=== PATIENT | female | born 1970 | race Caucasian/White ===

== ENCOUNTER 2019-10-09 09:53 | Outpatient (CLI) | payer BC, SELFPAY ==
--- NOTE | 2019-10-09 10:23 | USCV_ITS ---
Reagan Gregoria Age: 48 Gender: F : 1970 Exam Date: 10/09/2019 10:59 Ordering Phys: Martha Bowers NP Technologist: Teresita De Leon Exam Location: [facility] – [place]_ Indication: Right lower extremity edema and pain HISTORY: Lower extremity edema and pain. PROCEDURES: Venous duplex imaging was performed in only the right lower extremity. The following venous structures were evaluated: common femoral vein, profunda vein, proximal portion of the greater saphenous vein, superficial femoral vein, and the popliteal vein. In addition, the posterior tibial and peroneal trunk were evaluated. FINDINGS: Normal 2-D Doppler and augmentation and compressibility throughout the lower extremity venous structures. Additional imaging through the proximal calf veins also reveals no thrombus. Limited evaluation of the greater saphenous vein is patent with no thrombus. CONCLUSIONS Negative right lower extremity venouos Dopler ultrasound. Dr. Ruth Coronado MD (Electronically Signed) Final Date: 09 October 2019 12:01 S
== END 2019-10-09 09:54 | disposition home or self-care (01) ==
LOC: RAD 10:01
PROVIDERS: Family Provider Family Medicine; PCP Family Medicine; Visit Provider Nurse Practitioner Family
DX: R60.0 Localized edema (principal); M79.661 Pain in right lower leg
CPT/HCPCS: 93971

== ENCOUNTER 2019-10-15 17:01 | Outpatient (CLI) | payer BC, SELFPAY ==
--- NOTE | 2019-10-15 | XR_ITS ---
WS: [id number] Right foot, 2 views, 10/15/2019 Clinical Data: BILATERAL FOOT PAIN Comparison: None. Findings: No fractures or dislocations are seen. No bone destruction or erosion is noted. The joint spaces and soft tissues are normal. XR/XR foot RT 2V [id number] Impression: Negative right foot.
== END 2019-10-15 17:02 | disposition home or self-care (01) ==
LOC: RAD 17:03
PROVIDERS: Family Provider Family Medicine; PCP Family Medicine; Visit Provider Nurse Practitioner Family
DX: M79.671 Pain in right foot (principal)
CPT/HCPCS: 73620

== ENCOUNTER 2019-10-27 12:26 | Outpatient (CLI) | payer BC, SELFPAY ==
--- NOTE | 2019-10-27 12:32 | US_ITS ---
WS: [id number] Thyroid ultrasound, 10/27/2019 Clinical Data: NONTOXIC SINGLE THYROID NODULE Comparison: None. Findings: The right lobe of thyroid measures 5.6 cm x 2.4 cm x 1.8 cm. There is a central nodule measuring 1.59 x 2.41 x 2.8 cm with mixed echogenicity. There is a smaller nodule measuring 0.46 x 0.48 x 0.68 cm. The left lobe measures 4.5 cm x 1.5 cm x 1.1 cm. There are at least 3 small nodules the largest of wh ich measures 0.33 x 0.43 x 0.6 cm. The small nodules are also of mixed echogenicity. The isthmus measured 0.3 mm. The echotexture of the thyroid is uniform. US/US thyroid [id number] Impression: 1. Large right thyroid nodule unchanged. 2. Small right thyroid nodule and 3 small left thyroid nodules.
== END 2019-10-27 12:27 | disposition home or self-care (01) ==
LOC: RAD 12:29
PROVIDERS: Family Provider Family Medicine; PCP Family Medicine; Visit Provider Nurse Practitioner Family
DX: E04.2 Nontoxic multinodular goiter (principal)
CPT/HCPCS: 76536

== ENCOUNTER → 2019-11-24 10:23 | Outpatient (BNVA) | payer BC, SELFPAY | PROVIDERS: Family Provider Family Medicine; PCP Family Medicine; Visit Provider Otolaryngology | DX: E04.1 Nontoxic single thyroid nodule (principal); E04.9 Nontoxic goiter, unspecified | CPT/HCPCS: 99203; 99214 ==

== ENCOUNTER 2019-12-03 15:26 | Outpatient (CLI) | payer BC, SELFPAY ==
--- NOTE | 2019-12-03 15:31 | XR_ITS ---
WS: [id number] CERVICAL SPINE TECHNIQUE: 3 views of the cervical spine CLINICAL INFORMATION: NECK PAIN COMPARISON: None. FINDINGS: Normal cervical alignment. Normal C1-C2 articulation. Stable fusion C5-6 with interbody fusion graft. Fusion appears solid. XR/XR cervical spine 3V* [id number] IMPRESSION: Solid-appearing fusion C5-6
== END 2019-12-03 15:27 | disposition home or self-care (01) ==
LOC: RADWPI 15:29
PROVIDERS: Family Provider Family Medicine; PCP Family Medicine; Visit Provider Nurse Practitioner Family
DX: M54.2 Cervicalgia (principal); Z98.1 Arthrodesis status
CPT/HCPCS: 72040

== ENCOUNTER 2020-01-07 08:01 | Outpatient (CLI) | payer BC, SELFPAY ==
--- NOTE | 2020-01-07 08:00 | XR_ITS ---
WS: [id number] LATERAL CERVICAL SPINE: 3 view. Lateral radiographs are performed in upright neutral, flexion and extension to the patient's toleranc e. HISTORY: Neck pain COMPARISON: 12/03/2019 Anterior cervical fusion with plate and screw fixation at C5-6. Interbody spacer with normal disc spa ce height. Fusion across the disc space. Straightening of the normal cervical lordosis. With flexion and extension there is no significant ins tability. Very slight retrolisthesis of C4 during extension. XR/XR cervical spine fl/ex [id number] IMPRESSION: 1. No significant cervical instability. 2. Anterior cervical fusion with interbody spacer at C5-6 is intact.
== END 2020-01-07 08:02 | disposition home or self-care (01) ==
LOC: RADWPI 08:03
PROVIDERS: Family Provider Family Medicine; PCP Family Medicine; Visit Provider Licensed Practical Nurse
DX: M54.2 Cervicalgia (principal); M43.22 Fusion of spine, cervical region
CPT/HCPCS: 72040

== ENCOUNTER 2020-01-20 10:54 | Outpatient (CLI) | payer BC, SELFPAY ==
--- NOTE | 2020-01-20 11:08 | MR_ITS ---
WS: [id number] MRI CERVICAL SPINE HISTORY: Neck pain COMPARISON: 07/12/2018 Prior anterior cervical fusion at C5-6 with interbody spacer. Mild straightening of the normal cervical lordosis. Mild disc desiccation. No signal abnormality with in the cord. No atrophy or edema. Craniocervical junction, C1 and C2 relationship, odontoid process and soft tissues are normal. C2-C3: Normal. C3-C4: Mild osteophytic ridging and asymmetric disc bulging to the LEFT. No significant stenosis. C4-C5: Mild annular disc bulging and osteophytic ridging. Slight effacement of ventral CSF but no jessika nosis. C5-C6: Mild annular disc bulging. No stenosis. C6-C7: Mild annular disc bulging. No stenosis. C7-T1: Small foraminal osteophyte on the LEFT. Minimal LEFT foraminal narrowing. RIGHT thyroid nodule measures 22.0 x 1.6 cm. Recent thyroid ultrasound has been performed on 0. MR/MR cervical spin wo con* [id number] IMPRESSION: 1. Prior anterior cervical fusion at C5-C6 is stable. No complications. 2. Mild effacement of ventral CSF at C4-5 has slightly progressed since the pr ior study. No significant stenosis. 3. Mild asymmetric disc bulging to the LEFT at C3-4.
== END 2020-01-20 10:55 | disposition home or self-care (01) ==
LOC: RADWPI 10:57
PROVIDERS: Family Provider Family Medicine; PCP Family Medicine; Visit Provider Licensed Practical Nurse
DX: M43.22 Fusion of spine, cervical region (principal); M25.78 Osteophyte, vertebrae; M50.21 Other cervical disc displacement, high cervical region; M96.1 Postlaminectomy syndrome, not elsewhere classified; E04.9 Nontoxic goiter, unspecified
CPT/HCPCS: 72141; 95910

== ENCOUNTER → 2020-01-26 11:37 | Outpatient (BNVA) | payer BC, SELFPAY | PROVIDERS: Family Provider Family Medicine; PCP Nurse Practitioner Family; Referring Provider Licensed Practical Nurse; Visit Provider Specialist | DX: M96.1 Postlaminectomy syndrome, not elsewhere classified (principal); M79.7 Fibromyalgia; R51 Headache | CPT/HCPCS: 99203; J1885 ==

== ENCOUNTER 2020-02-08 15:58 | Outpatient (RCR) | payer BC, SELFPAY | END 2020-02-28 23:59 | disposition home or self-care (01) | LOC: SPT 15:58 | PROVIDERS: PCP Nurse Practitioner Family; Referring Provider Specialist; Visit Provider Specialist | DX: M54.2 Cervicalgia (principal); M54.6 Pain in thoracic spine; M54.5 Low back pain; M79.7 Fibromyalgia | CPT/HCPCS: 97110; 97112; 97140; 97161; 97164; 97530 ==

== ENCOUNTER 2020-02-29 06:00 | Outpatient (RCR) | payer BC, SELFPAY | END 2020-03-29 23:59 | disposition home or self-care (01) | LOC: SPT 06:00 | PROVIDERS: PCP Nurse Practitioner Family; Visit Provider Specialist | DX: M79.7 Fibromyalgia (principal) | CPT/HCPCS: 97110; 97112; 97140; 97530 ==

== ENCOUNTER 2020-03-30 06:00 | Outpatient (RCR) | payer BC, SELFPAY | END 2020-04-29 23:59 | disposition home or self-care (01) | LOC: SPT 06:00 | PROVIDERS: PCP Nurse Practitioner Family; Visit Provider Specialist | DX: M79.7 Fibromyalgia (principal) | CPT/HCPCS: 97110; 97530 ==

== ENCOUNTER 2020-04-30 06:00 | Outpatient (RCR) | payer BC, SELFPAY | END 2020-05-30 23:59 | disposition home or self-care (01) | LOC: SPT 06:00 | PROVIDERS: PCP Nurse Practitioner Family; Visit Provider Specialist | DX: M79.7 Fibromyalgia (principal) | CPT/HCPCS: 97110; 97112; 97140 ==

== ENCOUNTER 2020-05-31 06:00 | Outpatient (RCR) | payer BC, SELFPAY | END 2020-06-22 14:24 | disposition home or self-care (01) | LOC: SPT 06:00 | PROVIDERS: PCP Nurse Practitioner Family; Visit Provider Specialist | DX: M79.7 Fibromyalgia (principal); M54.2 Cervicalgia; M54.6 Pain in thoracic spine; M54.5 Low back pain | CPT/HCPCS: 97110; 97112; 97164 ==

== ENCOUNTER → 2020-06-13 09:57 | Outpatient (BNVA) | payer BC, SELFPAY | PROVIDERS: PCP Nurse Practitioner Family; Visit Provider Specialist | DX: R29.90 Unspecified symptoms and signs involving the nervous system (principal); M18.10 Unilateral primary osteoarthritis of first carpometacarpal joint, unspecified hand; M75.81 Other shoulder lesions, right shoulder | CPT/HCPCS: 20550; 99213; J1030; J3490 ==

== ENCOUNTER → 2020-07-06 11:22 | Outpatient (BNVA) | payer BC, SELFPAY | PROVIDERS: PCP Nurse Practitioner Family; Visit Provider Specialist | DX: M25.511 Pain in right shoulder (principal); M18.10 Unilateral primary osteoarthritis of first carpometacarpal joint, unspecified hand; M50.90 Cervical disc disorder, unspecified, unspecified cervical region; M79.7 Fibromyalgia; Z98.1 Arthrodesis status | CPT/HCPCS: 99214 ==

== ENCOUNTER 2020-07-25 12:49 | Outpatient (CLI) | payer BC, SELFPAY ==
--- NOTE | 2020-07-25 13:03 | MR_ITS ---
WS: [id number] MRI brachial plexus, noncontrast. HISTORY: Burning pain in RIGHT shoulder anterior to posterior. No injury. Multiplanar, multisequence imaging is performed. There are no soft tissue mass along the course of the cervical trunks. Symmetric appearance bilateral ly. No edema surrounding the nerve roots. Asymmetric appearance of the internal jugular veins with th e RIGHT being larger than the LEFT. There is also a known RIGHT thyroid nodule which has been previou sly described by ultrasound. No adenopathy. No compression upon the cervical cord. MR/MR brachialplexus wo con [id number] IMPRESSION: No mass or signal abnormalities along the brachial plexus. Patient has a known RIGHT thyroid mass which has been previously described and evaluated.
--- NOTE | 2020-07-25 13:45 | MR_ITS ---
WS: [id number] MRI RIGHT SHOULDER HISTORY: M25.511 Pain in right shoulder COMPARISON: None available. TECHNIQUE: Multiplanar sequences of the shoulder joint are submitted. Very minimal hypertrophic degenerative changes at the AC joint. No subacromial fluid collection. Smal l amount of fluid in the subdeltoid bursa. No os acromion. Biceps tendon remains in normal position. No rotator cuff tear. Muscles of the rotator cuff are intact with no asymmetry or edema. Mild suprasp inatus tendinopathy. There is a small amount of fluid in the subscapular recess. There is also very s mall amount of fluid in the subdeltoid bursa. No labral abnormality. MR/MR shoulder RT wo con* [id number] IMPRESSION: 1. No rotator cuff tear. 2. Mild tendinopathy distal supraspinatus tendon. 3. Small amount of fluid in the subdeltoid and subscapularis recesses.
== END 2020-07-25 12:50 | disposition home or self-care (01) ==
LOC: RADSHAW 12:54
PROVIDERS: PCP Nurse Practitioner Family; Visit Provider Specialist
DX: M25.511 Pain in right shoulder (principal); E07.9 Disorder of thyroid, unspecified
CPT/HCPCS: 71550; 73221

== ENCOUNTER → 2020-10-22 16:38 | Outpatient (BNVA) | payer BC, SELFPAY | PROVIDERS: PCP Nurse Practitioner Family; Visit Provider Nurse Practitioner Family | DX: S90.32XA Contusion of left foot, initial encounter (principal); X58.XXXA Exposure to other specified factors, initial encounter | CPT/HCPCS: 73630 ==

== ENCOUNTER 2021-06-19 16:46 | Outpatient (CLI) | payer BC, SELFPAY ==
--- NOTE | 2021-06-19 17:14 | ECG_ITS ---
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 Measurements Intervals [place] Rate: 91 P: 57 IN: 138 QRS: 56 QRSD: 90 T: 3 QT: 311 QTc: 384 Interpretive Statements SINUS RHYTHM NONSPECIFIC T-WAVE ABNORMALITY INTERPRETATION BASED ON A DEFAULT AGE OF 40 YEARS Compared to ECG 02/06/2019 14:12:56 No significant changes Electronically Signed On 06-21-2021 23:36:43 CDT by Jyoti Lr M.D. [id number]
== END 2021-06-19 16:47 | disposition home or self-care (01) ==
LOC: RT 16:51
PROVIDERS: PCP Nurse Practitioner Family; Visit Provider Nurse Practitioner Family
DX: Z86.79 Personal history of other diseases of the circulatory system (principal)
CPT/HCPCS: 93005

== ENCOUNTER 2021-10-05 08:30 | Outpatient (CLI) | payer BC, SELFPAY ==
--- NOTE | 2021-10-05 08:45 | USCV_ITS ---
Gregoria Kirk Age: 50 Gender: F : 1970 Exam Date: 10/05/2021 08:43 Ordering Phys: Ana Cristina Mondragon MD ([email or web address]) Technologist: CALEB Exam Location: [facility] – [place] Indication: TACHYCARDIA BP: 112 / 82 HR: 104 Rhythm: Sinus Technical Quality: Technically difficult study MEASUREMENTS (Male / Female) Normal Values 2D ECHO LV Diastolic Diameter PLAX 4.2 cm 4.2 - 5.9 / 3.9 - 5.3 cm LV Systolic Diameter PLAX 2.9 cm IVS Diastolic Thickness 1.0 cm 0.6 - 1.0 / 0.6 - 0.9 cm IVS Systolic Thickness 1.3 cm LVPW Diastolic Thickness 1.1 cm 0.6 - 1.0 / 0.6 - 0.9 cm LVPW Systolic Thickness 1.3 cm LVOT Diameter 2.0 cm LV Ejection Fraction 2D Teich 59.4 % LV Ejection Fraction MOD 2C 56.9 % LV Ejection Fraction 2C AL 55.5 % LA Diameter 3.3 cm LA Width 2.7 cm LA Height 4.5 cm RA Width 3.5 cm RA Height 3.6 cm Aorta at Sinotubular Diameter 2.0 cm M-MODE Aortic Annulus Diameter 2.9 cm LA Ao Ratio MM 1.3 DOPPLER AV Peak Velocity 132.0 cm/s LVOT Peak Velocity 98.0 cm/s AV Area Cont Eq vti 2.2 cm squared AV Area Cont Eq pk 2.4 cm squared TR Peak Velocity 116.4 cm/s TR Peak Gradient 5.4 mmHg TR Mean Velocity 80.7 cm/s TR Mean Gradient 2.8 mmHg TR Velocity Time Integral 19.8 cm RV Acceleration Time 0.1 s RV Ejection Time 0.2 s RV AcT/ET 0.3 FINDINGS Left Ventricle Normal left ventricular size, systolic function and wall thickness, with no regional wall motion abnormalities. Left ventricular ejection fraction is estimated at 63 %. Normal diastolic function. Right Ventricle Normal right ventricular size and systolic function. Normal right ventricular systolic pressure. Right Atrium Normal right atrial size. Right atrial pressure estimated at 3 mm Hg. Left Atrium Normal left atrial size. Mitral Valve Structurally normal mitral valve. No mitral valve stenosis. No mitral valve regurgitation. Aortic Valve Structurally normal trileaflet aortic valve. No aortic valve stenosis. No aortic valve regurgitation. Tricuspid Valve Structurally normal tricuspid valve. Trace tricuspid valve regurgitation. Pulmonic Valve Structurally normal pulmonic valve. No pulmonary valve stenosis. Trace pulmonary valve regurgitation. Pericardium No pericardial effusion. Aorta Normal-sized aortic root and proximal ascending aorta. Normal- sized inferior vena cava with greater than 50% respiratory variation. CONCLUSIONS 1. Normal left ventricular size, systolic function and wall thickness, with no regional wall motion abnormalities. Left ventricular ejection fraction is estimated at 63 %. Normal diastolic function. 2. Normal right ventricular size and systolic function. 3. No significant valvular normality. 4. Normal pulmonary artery pressure. 5. No prior similar studies to compare. Ana Cristina Mondragon MD (Electronically Signed) Final Date: 10 October 2021 13:36 S
== END 2021-10-05 08:31 | disposition home or self-care (01) ==
LOC: RAD 08:32
PROVIDERS: PCP Nurse Practitioner Family; Visit Provider Internal Medicine Cardiovascular Disease
DX: R00.0 Tachycardia, unspecified (principal)
CPT/HCPCS: 93306; C8929

== ENCOUNTER → 2024-05-07 14:48 | Outpatient (BNVA) | payer OTHER, SELFPAY | PROVIDERS: PCP Nurse Practitioner Family; Visit Provider Physician Assistant | DX: M25.841 Other specified joint disorders, right hand | CPT/HCPCS: 73130 ==

== ENCOUNTER 2024-06-17 12:27 | Inpatient (IN) | payer OTHER, BC, MEDICAID, SELFPAY ==
[2024-06-17] VITALS (22 sets, daily range): BP systolic 97–161; BP diastolic 58–101; PULSE 66–104; RESP 16–20; TEMP 36.1–36.8; O2SAT 92–97; BMI 43.9
[2024-06-17] MEDS: acetaminophen 1,000 MG/100 ML PIGGYBACK 400 MG IV (09:01)
[2024-06-17] MEDS: sodium chloride 0.9% 1,000 ML 30 ML IV (09:01)
[2024-06-17] MEDS: scopolamine 1.5 Patch 1 PATCH TRANSDERMA (09:02)
[2024-06-17] MEDS: ketorolac 30 mg/mL INJ IVP (09:02)
--- NOTE | 2024-06-17 09:14 | ANES.PREANE2 ---
Pre-Anesthetic Assessment Height/Weight: Height 5 ft 9 in Weight 298 lb Temp Pulse Resp BP Pulse Ox O2 Del Method 97.8 F 104 H 18 144/86 97 Room Air 06/17/24 08:49 06/17/24 08:49 06/17/24 08:49 06/17/24 08:49 06/17/24 08:49 06/17/24 08:52 Preop Diagnosis: Finger cyst Operation Date: 06/17/24 10:10 Proposed Procedures p middle finger distal interphalangeal joint cyst excision(Right) - Omer Vallesatt, DO Was Beta Marie taken within 24 hours: N/A Was Clonidine taken within 24 hours: N/A Last intake: Intake Last Liquid Date 06/16/24 Last Liquid Time 22:00 Last Solid Date 06/16/24 Last Solid Time 22:00 Social No alcohol and No tobacco Exam alert, oriented x 3, clear to auscultation bilaterally and regular rate & rhythm Airway Submandibular: within normal limits Cervical ROM: within normal limits Mallampati: Class II Dentition: full Anesthetic Plan ASA status: 3 Anesthesia: MAC Other: No prior issues with anesthesia NPO since midnight History of GERD, controlled on Protonix BMI 44 Patient had an episode of SVT a few years ago, workup negative Echo 2021 showing EF 63% Prior EKG showing sinus rhythm METs greater than 4 Plan for MAC anesthetic with local via surgeon Medications/Allergies Home Medications Medication Instructions Recorded Confirmed Last Taken Type omeprazole 40 mg capsule,delayed 40 mg PO DAILY 11/24/19 06/17/24 06/16/24 History release venlafaxine 37.5 mg 75 mg PO QPM 07/06/21 06/16/24 06/16/24 History capsule,extended release 24 hr buspirone 10 mg tablet 10 mg PO DAILY 05/07/24 06/16/24 06/16/24 History hydrochlorothiazide 12.5 mg tablet 12.5 mg PO DAILY 05/07/24 06/16/24 06/16/24 History rosuvastatin 10 mg tablet 10 mg PO QPM 05/07/24 06/16/24 06/16/24 History amitriptyline 25 mg tablet 25 mg PO BEDTIME 06/16/24 06/16/24 06/15/24 History metoprolol tartrate 25 mg tablet 25 mg PO DAILY 06/16/24 06/16/2406/16/24 History metoprolol tartrate 50 mg tablet 50 mg PO DAILY 06/17/24 06/17/24 06/17/24 07:30 History Allergies Allergy/AdvReac Type Severity Reaction Status Date / Time codeine Allergy hives Verified 06/17/24 08:39 estradiol Allergy ALGY-Wheezi Verified 06/17/24 08:39 ng nalbuphine [From Nubain] Allergy hives Verified 06/17/24 08:39 Current Medications Generic Name Dose Route Start Last Admin Trade Name Freq PRN Reason Stop Dose Admin Sodium Chloride 1,000 mls @ 30 mls/hr 06/17/24 08:45 06/17/24 09:01 Sodium Chloride 0.9% IV 06/18/24 08:44 30 mls/hr .Q24H SADIA Administration PFSH Anesthesia Medical History (Updated 06/16/24 @ 12:53 by Isabel Wise) Tachycardia Metabolic syndrome Obesity Vitamin D deficiency H/O supraventricular tachycardia Menopausal symptoms Hiatal hernia GERD (gastroesophageal reflux disease) Cervical disc disease Cervical post-laminectomy syndrome SVT (supraventricular tachycardia) Fibromyalgia Goiter Surgical History S/P shoulder surgery 2020 removal of bone spur [facility], [place] History of laparoscopic cholecystectomy H/O: hysterectomy Hx of fusion of cervical spine (2003) C5-C6, Dr. 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
--- NOTE | 2024-06-17 09:28 | P.HP_ITS ---
Same Day Surgery H&P Indication for Procedure/HPI DATE OF PROCEDURE: June 17, 2024 CHIEF COMPLAINT/INDICATIONFOR SURGICAL PROCEDURE: Right middle finger cyst PREOP DIAGNOSIS: Right middle finger cyst PLANNED PROCEDURE: Operation Date: 06/17/24 10:10 Proposed Procedures p middle finger distal interphalangeal joint cyst excision(Right) - Omer Feliz DO Medications/Allergies* Home Medications Medication Instructions Recorded Confirmed Type omeprazole 40 mg capsule,delayed 40 mg PO DAILY 11/24/19 06/17/24 History release venlafaxine 37.5 mg 75 mg PO QPM 07/06/21 06/16/24 History capsule,extended release 24 hr buspirone 10 mg tablet 10 mg PO DAILY 05/07/24 06/16/24 History hydrochlorothiazide 12.5 mg tablet 12.5 mg PO DAILY 05/07/24 06/16/24 History rosuvastatin 10 mg tablet 10 mg PO QPM 05/07/24 06/16/24 History amitriptyline 25 mg tablet 25 mg PO BEDTIME 06/16/24 06/16/24 History metoprolol tartrate 25 mg tablet 25 mg PO DAILY 06/16/24 06/16/24 History metoprolol tartrate 50 mg tablet 50 mg PO DAILY 06/17/24 06/17/24 History Allergies/Adverse Reactions Allergy/AdvReac Type Severity Reaction Status Date / Time codeine Allergy hives Verified 06/17/24 08:39 estradiol Allergy ALGY-Wheezi Verified 06/17/24 08:39 ng nalbuphine [From Nubain] Allergy hives Verified 06/17/24 08:39 Current Medications: Generic Name Dose Route Start Last Admin Trade Name Freq PRN Reason Stop Dose Admin Sodium Chloride 1,000 mls @ 30 mls/hr 06/17/24 08:45 06/17/24 09:01 Sodium Chloride 0.9% IV 06/18/24 08:44 30 mls/hr .Q24H SADIA Administration Pertinent History/Comorbid Conditions* Medical History (Updated 05/07/24 @ 15:23 by CONCEPCION Alvares) Tachycardia Metabolic syndrome Obesity Vitamin D deficiency H/O supraventricular tachycardia Menopausal symptoms Hiatal hernia GERD (gastroesophageal reflux disease) Cervical disc disease Cervical post-laminectomy syndrome SVT (supraventricular tachycardia) Fibromyalgia Goiter Surgical History (Updated 09/17/21 @ 09:49 by BUBBA Saucedo) S/P shoulder surgery 2020 removal of bone spur [facility], [place] History of laparoscopic cholecystectomy H/O: hysterectomy Hx of fusion of cervical spine (2003) C5-C6, Dr. 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 No signs of abscess. Pain with range of motion in DIP joint. Negative Tinel's and negative Phalen's. No mechanical locking or catching of fingers. 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 Radial pulse 2+. Recommendations Surgery/Procedure today Other Plans: Plan proceed to the OR today for right middle finger cyst excision at the DIP joint of the finger. Patient understands the risk benefits complication alternatives surgery and through shared decision-making elects proceed with surgical intervention all questions answered at this time. Coding Level of Care Code Acute Code for Chg Fwanastasiya
[2024-06-17] MEDS: ROPivacaine 0.5% SDV 30 mL 150 MG INJECTION (09:38)
[2024-06-17] MEDS: ceFAZolin 3,000 MG in sodium chloride 0.9% (plus) 100 ML 200 MG IV (09:38)
--- NOTE | 2024-06-17 10:22 | W.PM.BPON ---
Date of Procedure: 06/17/2024 Surgeon: Omer Feliz DO Mathematics Instructor(s): Galdino Feliz PA-C Procedure(s) performed: Right middle finger mucous cyst excision(0.25cm x0.25cm x0.25cm) Findings of the procedure(s): Right middle finger mucous cyst underwent procedure as planned without issues or complications Estimated blood loss: 1 mL Specimen(s) removed: Right middle finger mucous cyst excised and sent for pathology Post-operative diagnosis: Right middle finger mucous cyst
--- NOTE | 2024-06-17 10:27 | P.OP_ITS ---
Operative Report Date of procedure: June 17, 2024 Surgeon: Omer Feliz DO Single Needle Tufting Machine Operator: Galdino Feliz PA-C: PA was necessary for assistance in this case with hand positioning to execute the procedure, retraction and protection of neurovascular structures as well as to assist with wound closure and dressing application. Procedure: Preoperative diagnosis: Right middle finger mucous cyst Post-op diagnosis: Right?middle?finger?mucous?cyst Procedure done: Right middle finger?mucous?cyst excision (0.25cm x0.25cm x0.25cm) Surgeon: Omer Feliz DO Estimated blood loss: 1 mL Tourniquet time 12 minutes IV fluids: 100 mL Complications: None Findings: See operative report narrative Condition: stable Disposition: same day Brief History: Patient presents to the outpatient setting with findings consistent with a right middle finger?DIP mucous?cyst.? She has been worked up in the outpatient setting and is failed conservative treatment approach.? 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 patient's failed conservative treatment options at this point in time patient wishes to proceed with surgical intervention.? We talked about the risk benefits complications and alternatives with surgical nonsurgical treatment options.? Understanding risk of surgery she agrees to proceed with a right middle finger?mucous?cyst excision.? All questions answered. Procedure: Patient was seen evaluated in the preoperative holding area.? Consent was reviewed and signed with patient.? Correct extremity was then marked.? Patient was then seen and evaluated by the anesthesia department once cleared for surgery patient was then taken back to the operative suite patient was placed in supine position and all bony prominences well-padded the patient was properly secured to the bed.? Armboard was applied to the right upper extremity. This point time the right upper extremity was then prepped and draped in standard orthopedic fashion.? A final timeout was performed.? Patient received appropriate preoperative antibiotics. Prior to proceeding with incision sites I then performed digital block of the right middle finger under sterile aseptic technique Finger turnicot was used over the right middle finger to exsanguinate the digit. ? Right middle finger was then identified as well as the?mucous?cyst over the DIP joint on the radial aspect of the finger.? I then from the eponychial fold made an incision up to the DIP joint and slightly across longitudinally to encompass the entirety of the cyst. I then subsequently mobilized full-thickness skin flaps with care to not injure the extensor tendon. At this point time it was evident patient had a prominent cyst over the dorsal and radial aspect communicating to the joint capsule. I utilized [place] blade as well as dissection scissors to dissect out the mucous cyst and then this had a wider base I subsequently utilized [place] blade and bipolar to coagulate and excise this at the base communicating to the DIP joint. Cyst measured(0.25cm x0.25cm x0.25cm). Overall there was no significant dorsal osteophyte prominence noted and mild arthritic changes noted of the DIP joint. At this point time I utilize bipolar electrocautery to cauterize the cyst wound bed to hopefully prevent from cyst recurrence I then subsequent let down the finger turnicot. Hemostasis was satisfactory thoroughly irrigation was performed. I then closed the dorsal capsule with interrupted 4-0 Monocryl suture to reapproximate and close down the space for cyst recurrence prevention and then subsequently closed the skin with interrupted nylon sutures. Right middle finger mucous cyst within subsequently sent for pathology. Incision sites were then dressed with Xeroform 4 x 4's Kerlix Lien wrap and an Nicko wrap.? Patient was then awakened from anesthesia and taken to PACU in stable condition. Disposition: Patient taken to PACU in stable condition, in the recovery process she complained of increased chest pain and subsequently after evaluation by the anesthesiologist recommended hospitalization by the hospitalist team for workup. She was stable from an orthopedic standpoint dressing was on in place clean dry and intact orthopedics will continue to follow while she is admitted. Patient understands and agrees with current plan.? All questions answered.
[2024-06-17] MEDS: lidocaine 1% 10 ML INJ XX (10:28)
--- NOTE | 2024-06-17 10:34 | P.PCN_ITS ---
PACU note Narrative: Patient is a 53-year-old female who just underwent a finger cyst excision. Patient transferred to PACU in stable condition. Pain is well controlled. Dressing on hand is dry and in place. Patient's fingers are warm and well- perfused. Patient can wiggle fingers. normal cap refill under 2 seconds. Patient has normal elbow range of motion. Sensation to hand intact. Exam: awake Disposition: discharged
[2024-06-17] MEDS: fentaNYL 50 mcg/mL INJ 2mL IVP (10:40)
--- NOTE | 2024-06-17 11:00 | ECG_ITS ---
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 Measurements Intervals [place] Rate: 69 P: 49 [place]: 151 QRS: 35 QRSD: 107 T: -14 QT: 400 QTc: 431 Interpretive Statements SINUS RHYTHM MODERATE T-WAVE ABNORMALITY, CONSIDER ANTERIOR ISCHEMIA [-0.1+ mV T-WAVE IN V3/V4] Compared to ECG 06/19/2021 17:05:35 Possible ischemia now present T-wave abnormality still present Electronically Signed On 06-18-2024 0:18:36 CDT by Jyoti Lr M.D. [email or web address]
--- NOTE | 2024-06-17 11:09 | SUR.PHASEII ---
patient c/o chest pain, heaviness on chest, radiating down her left arm and in her jaw. denies sob vs wnl. ekg completed. results given to anesthesia who is assessing patient and now to consult with the operating physician
--- NOTE | 2024-06-17 11:13 | PC.NURSE ---
1057 - moved pt from Phase 1 to phase 2 to room 10 - Anita RN at side - pt complains of chest pain upon entering room - states it is chest pressure -hooked to monitor per this nurse - 12 lead ekg ordered stat - Dr Campos notified
--- NOTE | 2024-06-17 11:38 | P.HP_ITS ---
Providers/Chief Complaint Primary Care Provider: BUBBA Foley Chief Complaint: M67.441 History of Present Illness Gregoria Kirk is a 53 year old female who was admitted today from outside elective surgery after finger cyst removal for chief complaint of chest pain. Patient is describing her pain as pressure-like sensation radiating towards her neck left arm and shoulder. It lasted for about few minutes and then resolved w ith use of fentanyl and opioids. EKG troponin unremarkable D-dimer unremarkable. By the time I evaluate the patient she is watching television no active chest pain hemodynamically stable endorsing history of aortic stenosis and family, father suffer from heart failure. Patient does not carry history of CHF or coronary disease, patient is not diabetic. Review of Systems Const: Denies: fever(s) Eyes: Denies: change in vision ENMT: Denies: throat pain Card: Reports: chest pain Resp: Denies: dyspnea GI: Denies: abdominal pain Medications/Allergies Home Medications Medication Instructions Recorded Confirmed Last Taken Type omeprazole 40 mg capsule,delayed 40 mg PO DAILY 11/24/19 06/17/24 06/16/24 History release venlafaxine 37.5 mg 75 mg PO QPM 07/06/21 06/16/24 06/16/24 History capsule,extended release 24 hr buspirone 10 mg tablet 10 mg PO DAILY 05/07/24 06/16/24 06/16/24 History hydrochlorothiazide 12.5 mg tablet 12.5 mg PO DAILY 05/07/24 06/16/24 06/16/24 History rosuvastatin 10 mg tablet 10 mg PO QPM 05/07/24 06/16/24 06/16/24 History amitriptyline 25 mg tablet 25 mg PO BEDTIME 06/16/24 06/16/24 06/15/24 History metoprolol tartrate 25 mg tablet 25 mg PO DAILY 06/16/24 06/16/24 06/16/24 History metoprolol tartrate 50 mg tablet 50 mg PO DAILY 06/17/24 06/17/24 06/17/24 07:30 History ondansetron 4 mg disintegrating 4 mg PO Q8H PRN nausea and 06/17/24 Unknown Rx tablet vomiting 3 days #9 tabs tramadol 50 mg tablet 50 mg PO Q6H PRN pain #20 tabs 06/17/24 Unknown Rx Allergies Allergy/AdvReac Type Severity Reaction Status Date / Time codeine Allergy hives Verified 06/17/24 08:39 estradiol Allergy ALGY-Wheezi Verified 06/17/24 08:39 ng nalbuphine [From Nubain] Allergy hives Verified 06/17/24 08:39 PFSH Acute PFSH: Medical History Tachycardia Metabolic syndrome Obesity Vitamin D deficiency H/O supraventricular tachycardia Menopausal symptoms Hiatal hernia GERD (gastroesophageal reflux disease) Cervical disc disease Cervical post-laminectomy syndrome SVT (supraventricular tachycardia) Fibromyalgia Goiter Surgical History S/P shoulder surgery 2020 removal of bone spur [facility], [place] History of laparoscopic cholecystectomy H/O: hysterectomy Hx of fusion of cervical spine (2003) C5-C6, Dr. 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 Vitals/I&O/Wt Last Vital Signs Temp 97.2 F L 06/17/24 10:58 Pulse 68 06/17/24 11:18 Resp 18 06/17/24 11:18 BP 160/86 06/17/24 11:27 Pulse Ox 96 06/17/24 11:18 O2 Del Method Room Air 06/17/24 10:58 06/16/24 06/17/24 06/17/24 22:59 06:59 14:59 Intake Total 150 / 150 Output Total Balance 149 / 149 Weight last 48 hrs Weight 135.171 kg Physical Exam Narrative: Patient is resting well Watching television Awake and alert No active chest pain hemodynamically stable currently on room air No active discomfort abdomen nontender distended Nonfocal neuroexam S1, S2 Currently on room air A&P Assessment and plan (1) Metabolic syndrome: (2) GERD (gastroesophageal reflux disease): Qualifiers: Esophagitis presence: esophagitis presence not specified Qualified Code(s): K21.9 - Gastro-esophageal reflux disease without esophagitis (3) Fibromyositis: (4) Cyst of finger: (5) Chest pain, atypical: Plan Atypical chest pain Hemodynamically stable Check D-dimer serial troponin EKG stress test in the morning Postoperative chest pain Patient is asking about her anxiolytics which have resumed N.p.o. after midnight She can a cardiac diet for now Full code DVT prophylaxis added Continue metoprolol Attestations Medical Necessity Statement*: Possible discharge within 24 hours Diagnoses Metabolic syndrome E88.81 Gastroesophageal reflux disease, unspecified whether esophagitis present K21.9 Esophagitis presence: esophagitis presence not specified Fibromyositis M79.7 Cyst of finger Chest pain, atypical R07.89
--- NOTE | 2024-06-17 11:40 | USCV_ITS ---
Gregoria Kirk Age: 53 Gender: F : 1970 Exam Date: 06/17/2024 13:40 Ordering Phys: Gregg Cano MD Technologist: Exam Location: [facility] [place] Indication: cp BP: 103 / 61 HR: 68 Rhythm: Sinus Technical Quality: Adequate MEASUREMENTS (Male / Female) Normal Values 2D ECHO LV Diastolic Diameter PLAX 4.5 cm 4.2 - 5.9 / 3.9 - 5.3 cm IVS Diastolic Thickness 1.0 cm 0.6 - 1.0 / 0.6 - 0.9 cm IVS Systolic Thickness 1.3 cm LVPW Diastolic Thickness 1.2 cm 0.6 - 1.0 / 0.6 - 0.9 cm LVPW Systolic Thickness 2.0 cm LVOT Diameter 2.0 cm LV Ejection Fraction 2D Teich 65.7 % LV Ejection Fraction MOD 4C 74.0 % LV Ejection Fraction MOD 2C 68.4 % LV Ejection Fraction 2C AL 70.5 % LA Diameter 2.9 cm RA Systolic Volume 4C AL 43.5 ml RA Systolic Volume 4C MOD 42.0 ml Aorta at Sinotubular Diameter 2.5 cm M-MODE LA Ao Ratio MM 1.2 AV Cusp Separation MM 2.2 cm DOPPLER AV Peak Velocity 131.0 cm/s LVOT Peak Velocity 80.0 cm/s AV Area Cont Eq vti 1.8 cm squared AV Area Cont Eq pk 2.0 cm squared MV Area PHT 3.1 cm squared Mitral E to A Ratio 1.0 TV Peak Velocity 149.0 cm/s TR Peak Velocity 176.0 cm/s TR Peak Gradient 12.4 mmHg TV Peak E Velocity 77.0 cm/s Right Atrial Pressure 3.0 mmHg Pulmonary Artery Systolic Pressu 15.4 mmHg PV Peak Velocity 82.0 cm/s FINDINGS Left Ventricle Left ventricle is normal in size. LV systolic function is normal with EF of 60 to 65%. No regional wall motion abnormalities are seen. Right Ventricle Normal in size and function Right Atrium Normal in size Left Atrium Normal in size Mitral Valve Structurally normal mitral valve. Trace mitral regurgitation. Aortic Valve Structurally normal aortic valve. No significant stenosis or regurgitation. Tricuspid Valve Mild tricuspid regurgitation. Insufficient TR jet to calculate RVSP. Pulmonic Valve Mild pulmonic regurgitation. Pericardium Normal Aorta Normal in size IVC Not well visualized CONCLUSIONS LV systolic function is normal with EF of 60 to 65%. Trace mitral regurgitation. Mild tricuspid regurgitation Mild pulmonic regurgitation Compared to prior echocardiogram from 2021, no significant changes are seen Kael Chaudhry MD (Electronically Signed) Final Date: 18 June 2024 08:27 S
--- NOTE | 2024-06-17 11:47 | SUR.PHASEII ---
patient reports pain in her chest has not subsided, has stayed consistent at a 5 with no worsening and no other symptoms observed or reported. troponins and d-dimer ordered. hospitalist consulted. patient is to be admitted. currently waiting on a room for admission. patient is resting quietly , no distress noted. vs stable. mom at bedside
[2024-06-17 12:05] LABS: Troponin T (5th) Once < 6 ng/L (0-10)
--- NOTE | 2024-06-17 12:16 | PM.MISC ---
Miscellaneous Note Purpose of Documentation: Orthopedic note update: I was contacted by anesthesia while in PACU patient was complaining of chest pain plan at this point in time anesthesia recommends patient be admitted by hospitalist just for appropriate workup. No intraoperative issues patient had received a digital local block underwent mucous cyst excision without issues or complications intraoperatively. At this point time we will rely on our internal medicine colleagues for appropriate workup while she is admitted during the hospital I will follow along from an orthopedic standpoint. Patient updated on current plan understands and agrees. All questions answered at this time. Omer Feliz, DO
[2024-06-17 12:21] LABS: D Dimer 0.65 ug/mLFEU (0-0.59)
[2024-06-17] MEDS: enoxaparin 40 mg/0.4 mL Syringe SUBCUT (13:21)
[2024-06-17] MEDS: pantoprazole 40 mg SDV IVP ×2 (13:21→18:45)
--- NOTE | 2024-06-17 13:41 | ECG_ITS ---
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 Measurements Intervals [place] Rate: 73 P: 58 [place]: 161 QRS: 65 QRSD: 104 T: 10 QT: 370 QTc: 409 Interpretive Statements SINUS RHYTHM NONSPECIFIC T-WAVE ABNORMALITY Compared to ECG 06/17/2024 10:59:14 Possible ischemia no longer present T-wave abnormality still present Electronically Signed On 06-18-2024 22:39:21 CDT by Jyoti Lr M.D. [email or web address]
--- NOTE | 2024-06-17 14:00 | ANE.PACU2 ---
Inpatient post-anesthesia follow up: Airway intact: Yes Vital signs: Temperature 97.2 F Pulse Rate 69 Respiratory Rate 18 Blood Pressure 141/84 Pulse Oximetry 97 Oxygen Delivery Me thod Room Air Oxygen Flow Rate Fraction of Inspir ed Oxygen Hydration adequate: Yes Nausea and vomiting: No Pain level: 2 Mental status: Baseline Additional Comments: Patient developed chest pain, shortness of breath and phase 2. Twelve-lead EKG ordered and appeared to be similar to previous. Reached out to Dr. Lr from cardiology and he suggested running troponins with observation overnight. Spoke to hospitalist who agreed to admit patient
--- NOTE | 2024-06-17 14:42 | ECG_ITS ---
[facility] Test Date: 2024-06-18 Pat Name: Gregoria Kirk Department: Room: 254 Gender: Female Improvement Lead: Manjeet Lyman : 1970 Requested By: Gregg Cano Order Number: [id number] Graham MD: Jyoti Lr M.D. Interpretive Statements NAME OF STUDY: LEXISCAN SESTAMIBI STRESS TEST INDICATION: [unstable angina, ] PROCEDURE: At the baseline, the EKG revealed normal sinus rhythm with diffuse nonspecific T wave changes in the inferolateral leads. The baseline heart was 78 bpm with a blood pressue of 172/88 mm of Hg Lexiscan was infused over a period of 20 seconds. A total of 0.4 milligrams of Lexiscan was infused. The stress phase was continued for a total of 5 minutes. Heart rate at the end of the stress phase was 92 bpm with a blood pressure 107/66 mm of Hg. The EKG at the peak infusion revealed no significant changes. Sestamibi was injected 20 seconds after the Lexiscan infusion. Heart rate at the end of the recovery phase was 84 bpm with a blood pressure of 103/65 mm of Hg. CONCLUSION: 1. No significant EKG changes with the LexiScan infusion 2. No LexiScan induced chest pain or cardiac arrhythmia 3. Normal blood pressure and heart rate response 4. Sestamibi/sestamibi perfusion scan pending; see separate report. Electronically Signed On 06-21-2024 19:50:31 CDT by Jyoti Lr M.D. [id number]
[2024-06-17 15:58] LABS: Troponin(5th) Baseline < 6 ng/L (0-10)
[2024-06-17 18:34] LABS: Troponin 5 2HR Delta 0.00001 ABS# (0-10)
[2024-06-17] MEDS: morphine IR 15 mg Tablet PO (20:50)
[2024-06-17] MEDS: amitriptyline 25 mg Tablet PO (20:51)
[2024-06-17] MEDS: venlafaxine ER (24HR) 75 mg Capsule PO (20:51)
[2024-06-17] MEDS: atorvastatin 40 mg Tablet PO (20:51)
[2024-06-17 22:31] LABS: Troponin 5 6HR Delta 0.00001 ng/L (0-12)
[2024-06-18] VITALS (7 sets, daily range): BP systolic 103–164; BP diastolic 63–79; PULSE 67–87; RESP 15–18; TEMP 36.3–36.8; O2SAT 93–99
[2024-06-18 03:28] LABS: Basophils % 0.4 %; Eosinophils # 0.1 10^3/uL (0.0-0.8); Eosinophils % 1.6 %; Hematocrit 41.9 % (36-47); Lymphocytes # 3.1 10^3/uL (0.8-4.8); Lymphocytes % 39.5 %; Mean Corpuscular HGB Conc 31.7 g/dL (30-55); Mean Corpuscular Volume 97.7 fl (85-98); Mean Platelet Volume 11.6 fL (7.4-10.4); Monocytes # 0.5 10^3/uL (0.2-0.9); Monocytes % 6.8 %; Neutrophils # 4.06 10^3/uL (1.8-7.7); Neutrophils % 51.3 %; Nucleated Red Blood Cells % 0 %; Platelet Count 211 10^3/cmm (157-399); Red Blood Count 4.29 10^6/uL (3.85-5.65); Red Cell Distribution Width 13.6 % (12.1-15.1); White Blood Count 7.92 10^3/uL (3.29-11.43)
[2024-06-18 03:58] LABS: Blood Urea Nitrogen 17 mg/dL (6-20); Calcium 8.2 mg/dL (8.5-10.5); Carbon Dioxide 26 mmol/L (22-29); Chloride 106 mmol/L (98-107); Creatinine Clr Calc Pharmacy 140.7756; Glomerular Filtration Rate 88.2 mL/min (90-130); Glucose 107 mg/dL (65-115); Magnesium 2.2 mg/dL (1.7-2.3); Osmolality Calculated 294 mOsm/kg (285-295); Sodium 141 mmol/L (136-145)
[2024-06-18 04:01] LABS: Anion Gap 12.7 (5-19); Potassium 3.7 mmol/L (3.5-5.1)
--- NOTE | 2024-06-18 07:01 | NMCV_ITS ---
NM anoop perf SPECT r/s* [id number] Gregoria Kirk Age: 53 Gender: F : 1970 Exam Date: 06/18/2024 08:21 Ordering Phys: Gregg Cano MD Technologist: IGLESIA Tran Exam Location: [facility] Indications: cp STRESS TEST Please see separate stress test report in [facility] for full findings IMAGE PROTOCOL Rest/Stress 1 Lexiscan Day Radiopharmaceutical Dose (mCi) Administration Site Administered by Rest: Tc-99m 10.9 IV IGLESIA Garcia Sestamibi Stress:Tc-99m 33 IV IGLESIA Tran Sestamiade Rest: 18-Jun-2024 60 Discovery 630 Stress: 18-Jun-2024 30 Discovery 630 0.4mg Lexiscan. Images obtained in supine and prone position. SPECT RESULTS Technical Quality: Good Raw Data Analysis: Breast attenuation Image Corrections: No attenuation or motion correction applied Summed Stress Score: 11 Summed Rest Score: 13 Summed Difference Score: 2 PERFUSION FINDINGS There is a medium sized area of partially reversible perfusion defect seen in the inferior wall. This is consistent with medium sized area of prior infarct with medium sized area of janet-infarct ischemia in the RCA territory. FUNCTIONAL RESULTS (calculated via Gated SPECT) Stress Image LV EF (%): 69 Stress EDV (mL):100 TID: 1.52 Stress ESV (mL):31 FUNCTIONAL FINDINGS: There is normal left ventricular systolic function. TID ratio is elevated. IMPRESSIONS 1. Abnormal myocardial perfusion imaging with medium sized area of prior infarct with janet-infarct ischemia seen in RCA territory. 2. LV systolic function is normal. 3. TID ratio is elevated. Kael Chaudhry MD (Electronically Signed) Final Date: 18 June 2024 10:37 S
[2024-06-18] MEDS: regadenoson 0.4 Mg/5 ml Syringe IVP ×2 (07:36→07:51)
[2024-06-18] MEDS: ondansetron 2 mg/ML SDV 2 mL 4 MG IVP (07:56)
--- NOTE | 2024-06-18 09:05 | PM.DCS ---
Discharge Providers Date of Admission: 06/17/24 12:27 Date of Discharge: June 18, 2024 Attending Provider at Admission: Omer Feliz DO Attending Provider at Discharge: Gregg Cano MD Primary Care Provider: BUBBA Foley Diagnoses at Discharge Discharge Diagnosis (1) Metabolic syndrome: Status: Acute (2) GERD (gastroesophageal reflux disease): Status: Acute Qualifiers: Esophagitis presence: esophagitis presence not specified Qualified Code(s): K21.9 - Gastro-esophageal reflux disease without esophagitis (3) Fibromyositis: Status: Acute (4) Cyst of finger: Status: Acute (5) Chest pain, atypical: Status: Acute Reason for Visit Reason for Visit: M67.441 Hospital Course Hospital Course 53-year female with significant hypercoagulable state disorder which runs in the family, patient was treated for pulmonary embolism in the past as well, does not have any coronary artery disease, was admitted after her finger cyst removal for chief complaint of chest pain. Her troponins and EKG remain unremarkable, we requested echo which did not show any wall motion abnormality. Stress test was done next day. Patient did not experience any chest pain during hospitalization, she remained hemodynamically stable, she will discharge with stable hemodynamics. Her D-dimer was not high for her age hence we have not pursued thromboembolic disease investigation. Physical Exam Narrative: Awake and alert GCS 15 No active chest pain Present Nonfocal neuroexam Discharge Data Studies Completed and Pending Completed Studies During Hospitalization Category Date Time Status Sestamibi Stress Test Request Routine Exams 06/17/24 14:42 Draft CV. echo complete* [id number] Routine Ultrasound 06/17/24 11:40 Completed Pending at discharge Category Date Time Status NM anoop perf SPECT r/s* [id number] Routine Nuc Med 06/18/24 07:01 Ordered Pathology: Surgical [PTH] Routine Pth 06/17/24 10:20 Received Laboratory Results WBC 7.92 10^3/uL (3.29-11.43) 06/18/24 02:45 RBC 4.29 10^6/uL (3.85-5.65) 06/18/24 02:45 Hgb 13.30 g/dL (11.27-16.99) 06/18/24 02:45 Hct 41.9 % (36-47) 06/18/24 02:45 MCV 97.7 fl (85-98) 06/18/24 02:45 MCH 31.0 pg (27-33) 06/18/24 02:45 MCHC 31.7 g/dL (30-55) 06/18/24 02:45 RDW 13.6 % (12.1-15.1) 06/18/24 02:45 Plt Count 211 10^3/cmm (157-399) 06/18/24 02:45 MPV 11.6 fL (7.4-10.4) H 06/18/24 02:45 Neut % (Auto) 51.3 % 06/18/24 02:45 Lymph % (Auto) 39.5 % 06/18/24 02:45 [place] % (Auto) 6.8 % 06/18/24 02:45 Eos % (Auto) 1.6 % 06/18/24 02:45 Baso % (Auto) 0.4 % 06/18/24 02:45 Neut # (Auto) 4.06 10^3/uL (1.8-7.7) 06/18/24 02:45 Lymph # (Auto) 3.1 10^3/uL (0.8-4.8) 06/18/24 02:45 [place] # (Auto) 0.5 10^3/uL (0.2-0.9) 06/18/24 02:45 Eos # (Auto) 0.1 10^3/uL (0.0-0.8) 06/18/24 02:45 Baso # (Auto) 0.0 10^3/uL (0.0-0.1) 06/18/24 02:45 Nucleated RBC % (auto) 0 % 06/18/24 02:45 Nucleated RBCs # 0.0 /100WBC 06/18/24 02:45 D-Dimer 0.65 ug/mLFEU (0-0.59) H 06/17/24 11:52 Sodium 141 mmol/L (136-145) 06/18/24 02:45 Potassium 3.7 mmol/L (3.5-5.1) 06/18/24 02:45 Chloride 106 mmol/L (98-107) 06/18/24 02:45 Carbon Dioxide 26 mmol/L (22-29) 06/18/24 02:45 Anion Gap 12.7 (5-19) 06/18/24 02:45 BUN 17 mg/dL (6-20) 06/18/24 02:45 Creatinine 0.7 mg/dL (0.5-0.9) 06/18/24 02:45 GFR Calculation 88.2 mL/min (90-130) L 06/18/24 02:45 Glucose 107 mg/dL (65-115) 06/18/24 02:45 Calculated Osmolality 294 mOsm/kg (285-295) 06/18/24 02:45 Calcium 8.2 mg/dL (8.5-10.5) L 06/18/24 02:45 Magnesium 2.2 mg/dL (1.7-2.3) 06/18/24 02:45 Troponin T 5th Gen ng/L < 6 ng/L (0-10) 06/17/24 11:35 Troponin T Baseline < 6 ng/L (0-10) 06/17/24 15:11 Troponin T 120 Minute 6.00 ng/L (0-10) 06/17/24 17:51 Delta Troponin T 0.14922 ABS# (0-10) 06/17/24 17:51 Troponin T Hi Sens 6Hr 6.00 ng/L (0-10) 06/17/24 21:41 Troponin T Hi Sens 6Hr Delta 0.35895 ng/L (0-12) 06/17/24 21:41 Vitals Last Vital Signs Temp 97.4 F L 06/18/24 04:31 Pulse 87 06/18/24 08:14 Resp 16 06/18/24 04:31 BP 103/65 06/18/24 08:14 Pulse Ox 93 06/18/24 04:31 O2 Del Method Room Air 06/17/24 15:30 Discharge Plan Discharge Patient Disposition: Home Condition: Stable Prescriptions: New tramadol 50 mg tablet 50 mg PO Q6H PRN (Reason: pain) Qty: 20 0RF ondansetron 4 mg tablet,disintegrating 4 mg PO Q8H PRN (Reason: nausea and vomiting) 3 Days Qty: 9 0RF Continued omeprazole 40 mg capsule,delayed release(DR/EC) 40 mg PO DAILY venlafaxine 37.5 mg capsule,extended release 24hr 75 mg PO QPM hydrochlorothiazide 12.5 mg tablet 12.5 mg PO DAILY buspirone 10 mg tablet 10 mg PO DAILY rosuvastatin 10 mg tablet 10 mg PO QPM metoprolol tartrate 25 mg tablet 25 mg PO DAILY amitriptyline 25 mg Tablet 25 mg PO BEDTIME No Action metoprolol tartrate 50 mg Tablet 50 mg PO DAILY Discharge Orders: Discharge Order (Routine); Ordered 06/18/24 Ordered By: Gregg Cano Discharge Diet: Regular Discharge Activity: Limit activity as instructed Patient Instructions: Acute Wound Care (DC), Post Anesthesia Care Activity Restrictions/Additional Instructions: Orthopedic discharge instructions: Patient should leave dressing on in place for 72 hours after that may remove dressing, clean incision with warm soapy water pat dry and redress with a dry dressing or Band-Aid. No baths or soaks do not submerge the operated hand into any bodies of water until incision site is completely healed. Encourage finger range of motion as tolerated May weight-bear as tolerated to the operative extremity Elevation and ice as needed for pain and swelling Take pain medication as prescribed Take antinausea medication as needed May supplement with [id number] anti-inflammatories (make sure not to take more than 3000 mg of Tylenol in 1 day as your pain medication does have Tylenol in it) Follow-up in the orthopedic office in 2 weeks Contact the office for any questions or concerns Discharge Attestations Time Spent in Discharge Care*: greater than 30 min Quality Metrics Clinical Quality Measures [ No reported AMI, CVA or VTE this stay] Coding Level of Care Code Acute Code for Chg Fwd Diagnoses Metabolic syndrome E88.81 Gastroesophageal reflux disease, unspecified whether esophagitis present K21.9 Esophagitis presence: esophagitis presence not specified Fibromyositis M79.7 Cyst of finger Chest pain, atypical R07.89
[2024-06-18] MEDS: BuSPIRONE 10 mg Tablet PO (09:12)
[2024-06-18] MEDS: pantoprazole 40 mg SDV IVP ×2 (09:12→17:10)
[2024-06-18] MEDS: acetaminophen 500 mg Tablet PO (09:14)
--- NOTE | 2024-06-18 12:11 | P.PN_ITS ---
Subjective 2 Subjective: Patient seen and examined postoperative day 1. She is currently getting worked up by the hospitalist for her chest pain. Troponins have been negative. Stable from an orthopedic standpoint dressings clean dry and intact. Complaining of normal postoperative pain to the operative site. Vitals/I&O/Wt Last Vital Signs Temp 97.4 F L 06/18/24 04:31 Pulse 87 06/18/24 08:14 Resp 16 06/18/24 04:31 BP 103/65 06/18/24 08:14 Pulse Ox 93 06/18/24 04:31 O2 Del Method Room Air 06/17/24 15:30 06/17/24 06/18/24 06/18/24 22:59 06:59 14:59 Intake Total 1481969 480 / 480 Balance 1481968 480 / 480 Weight last 48 hrs Weight 315 lb 1.6 oz Weight 298 lb Weight 298 lb Physical Exam 2 Narrative: Dressing to the right hand on in place is clean dry and intact. Patient still has some paresthesias from the local digital block. Dressing not taken down at this time. Patient is able to move the rest of her digits. Data 06/18/24 02:45 06/19/24 03:28 A&P Assessment and plan (1) Cyst of finger: Plan Continue to follow from an orthopedic standpoint Continue workup per the primary team for postoperative chest pain. Patient is planning on having a stress test. Will defer to primary team on patient's discharge orthopedics will continue to follow leave dressing on in place at this time. Attestations 2 Medical Necessity Statement*: Ongoing care for chest pain the patient had postoperatively Coding Level of Care Code Acute Code for Chg Fwd Diagnoses Cyst of finger Time Spent (min) 10
--- NOTE | 2024-06-18 12:13 | P.PN_ITS ---
Subjective 2 Subjective: Stress test showing reversible ischemia with elevated 3 times daily ratio Discussed with Dr. Weir, will consult Dr. Paulino Notified Dr. Feliz, I have discontinued by discharge orders she will need coronary angiogram for evaluation Vitals/I&O/Wt Last Vital Signs Temp 97.4 F L 06/18/24 04:31 Pulse 87 06/18/24 08:14 Resp 16 06/18/24 04:31 BP 103/65 06/18/24 08:14 Pulse Ox 93 06/18/24 04:31 O2 Del Method Room Air 06/17/24 15:30 06/17/24 06/18/24 06/18/24 22:59 06:59 14:59 Intake Total 1481969 480 / 480 Balance 1481968 480 / 480 Weight last 48 hrs Weight 142.927 kg Weight 135.171 kg Weight 135.171 kg Physical Exam 2 Narrative: Awake and alert GCS 15 Chest pain-free Hemodynamically stable Data 06/18/24 02:45 06/18/24 02:45 A&P Assessment and plan (1) Abnormal stress test: Plan Patient will need coronary angiogram, Dr. Snyder consulted Chest pain-free D-dimer unremarkable N.p.o. after midnight I will let her have cardiac diet today Discontinue discharge orders for today Attestations 2 Medical Necessity Statement*: Continue medical management Diagnoses Abnormal stress test R94.39
[2024-06-18] MEDS: enoxaparin 40 mg/0.4 mL Syringe SUBCUT (12:55)
--- NOTE | 2024-06-18 17:01 | PC.NURSE ---
This nurse assumed care of pt at 1700.
--- NOTE | 2024-06-18 18:43 | P.CONIM_ITS ---
Providers/Reason For Consult 2 Consulting Physician/Specialty*: Gregg Snyder MD/cardiology Reason for Consult*: abnormal stress test chest pain Requesting Physician: Dr. Cano Attending Physician: Gregg Cano MD Primary Care Provider: BUBBA Foley History of Present Illness History of Present Illness Gregoria Kirk is a 53 year old female past medical history significant for continues tobacco abuse for [id number] hypertension hyperlipidemia obesity underwent right hand surgery, post surgery during recovery patient started noticing chest pain radiating to left arm, patient later underwent stress test which showed moderate area of reversibility suggestive of ischemia in the inferior wall, it is the reason we have been asked to see the patient. According the patient he has been noticing fatigue and shortness of breath over the last few months she thought since she is overweight therefore she is experiencing it. Twelve-lead EKG shows sinus rhythm anterior ST changes could be nonspecific however cannot rule out ischemia. Review of Systems 2 Const: Denies: fever(s) Eyes: Denies: change in vision or photophobia ENMT: Denies: throat pain Card: Reports: chest pain Resp: Denies: dyspnea GI: Denies: abdominal pain Medications/Allergies Home Medications Medication Instructions Recorded Confirmed Last Taken Type omeprazole 40 mg capsule,delayed 40 mg PO DAILY 11/24/19 06/17/24 06/16/24 History release venlafaxine 37.5 mg 75 mg PO QPM 07/06/21 06/16/24 06/16/24 History capsule,extended release 24 hr buspirone 10 mg tablet 10 mg PO DAILY 05/07/24 06/16/24 06/16/24 History hydrochlorothiazide 12.5 mg tablet 12.5 mg PO DAILY 05/07/24 06/16/24 06/16/24 History rosuvastatin 10 mg tablet 10 mg PO QPM 05/07/24 06/16/24 06/16/24 History amitriptyline 25 mg tablet 25 mg PO BEDTIME 06/16/24 06/16/24 06/15/24 History metoprolol tartrate 25 mg tablet 25 mg PO DAILY 06/16/24 06/16/24 06/16/24 History metoprolol tartrate 50 mg tablet 50 mg PO DAILY 06/17/24 06/17/24 06/17/24 07:30 History ondansetron 4 mg disintegrating 4 mg PO Q8H PRN nausea and 06/17/24 Unknown Rx tablet vomiting 3 days #9 tabs tramadol 50 mg tablet 50 mg PO Q6H PRN pain #20 tabs 06/17/24 Unknown Rx Allergies Allergy/AdvReac Type Severity Reaction Status Date / Time codeine Allergy hives Verified 06/17/24 08:39 estradiol Allergy ALGY-Wheezi Verified 06/17/24 08:39 ng nalbuphine [From Nubain] Allergy hives Verified 06/17/24 08:39 Current Medications Generic Name Dose Route Start Last Admin Trade Name Freq PRN Reason Stop Dose Admin Acetaminophen 500 mg 06/17/24 11:38 06/18/24 09:14 Acetaminophen 500 Mg Tablet PO 500 mg Q4H PRN Administration fever Amitriptyline HCl 25 mg 06/17/24 21:00 06/17/24 20:51 Amitriptyline 25 Mg Tablet PO 25 mg BEDTIME SADIA Administration Atorvastatin Calcium 40 mg 06/17/24 21:00 06/17/24 20:51 Atorvastatin 40 Mg Tablet PO 40 mg DAILY@2100 SADIA Administration Buspirone HCl 10 mg 06/18/24 09:00 06/18/24 09:12 Buspirone 10 Mg Tablet PO 10 mg DAILY@0900 SADIA Administration Enoxaparin Sodium 40 mg 06/17/24 11:45 06/18/24 12:55 Enoxaparin 40 Mg/0.4 Ml Syringe SUBCUT 40 mg Q24H SADIA Administration Hydrochlorothiazide 12.5 mg 06/18/24 09:00 06/18/24 10:26 Hydrochlorothiazide 25 Mg Tablet PO Not Given DAILY SADIA Metoprolol Tartrate 50 mg 06/18/24 09:00 06/18/24 10:26 Metoprolol Tartrate 50 Mg Tablet PO Not Given DAILY@0900 COUNT INCLUDES THE [facility] Metoprolol Tartrate 25 mg 06/18/24 09:00 06/18/24 10:27 Metoprolol Tartrate 25 Mg Tablet PO Not Given DAILY@0900 COUNT INCLUDES THE [facility] Morphine Sulfate 15 mg 06/17/24 11:38 06/17/24 20:50 Morphine Ir 15 Mg Tablet PO 15 mg Q6H PRN Administration MODERATE PAIN Ondansetron HCl 4 mg 06/18/24 06:33 06/18/24 07:56 Ondansetron 2 Mg/Ml Sdv 2 Ml IVP 4 mg Q2M PRN Administration NAUSEA Pantoprazole Sodium 40 mg 06/17/24 11:40 06/18/24 17:10 Pantoprazole 40 Mg Sdv IVP 40 mg BID SADIA Administration Venlafaxine HCl 75 mg 06/17/24 21:00 06/17/24 20:51 Venlafaxine Er (24hr) 75 Mg Capsule PO 75 mg DAILY@2100 SADIA Administration PFSH Acute 2 PFSH: Medical History (Updated 06/18/24 @ 21:23 by Gregg Snyder MD) Essential hypertension Tachycardia Metabolic syndrome Obesity Vitamin D deficiency H/O supraventricular tachycardia Menopausal symptoms Hiatal hernia GERD (gastroesophageal reflux disease) Cervical disc disease Cervical post-laminectomy syndrome SVT (supraventricular tachycardia) Fibromyalgia Goiter Surgical History S/P shoulder surgery 2020 removal of bone spur [facility] [place], [place] History of laparoscopic cholecystectomy H/O: hysterectomy Hx of fusion of cervical spine (2003) C5-C6, Dr. 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 Patient laying in the bed she is chest pain-free. HEART: Regular S1 and S2. No murmur, rub or gallop. LUNGS: Clear to auscultate bilaterally. ABDOMEN: Soft, nontender and nondistended. Positive bowel sounds. No guarding, rebound or tenderness. CENTRAL NERVOUS SYSTEM: Grossly nonfocal. EXTREMITIES: Lower extremities with out edema bilaterally. Data 06/18/24 02:45 06/18/24 02:45 A&P Assessment and plan (1) Abnormal stress test: Abnormal stress test suggestive of moderate ischemia in the inferior wall possible RCA or dominant circumflex territory will proceed with left heart cath in the morning, patient in person and her daughter over the phone has been discussed all risk-benefit and alternative of the procedure, she would like to proceed with it. Will proceed with left heart cath in the morning, she will be n.p.o. overnight (2) Chest pain, atypical: Patient chest pain has been resolved stress is positive that we will proceed with left heart cath in the morning (3) Essential hypertension: Blood pressure moderately elevated will optimize medication Coding Level of Care Code Acute Code for [facility] Fwd Diagnoses Abnormal stress test R94.39 Chest pain, atypical R07.89 Essential hypertension I10
[2024-06-18] MEDS: morphine IR 15 mg Tablet PO (18:55)
[2024-06-18] MEDS: venlafaxine ER (24HR) 75 mg Capsule PO (21:00)
[2024-06-18] MEDS: atorvastatin 40 mg Tablet PO (21:00)
[2024-06-18] MEDS: amitriptyline 25 mg Tablet PO (21:00)
[2024-06-18] MEDS: sodium chloride 0.9% 1,000 ML 50 ML IV (22:02)
[2024-06-18] MEDS: losartan 50 mg Tablet PO (22:02)
[2024-06-19] VITALS (27 sets, daily range): BP systolic 84–145; BP diastolic 48–78; PULSE 67–90; RESP 9–23; TEMP 36.5–36.6; O2SAT 90–96; BMI 46.2
--- NOTE | 2024-06-19 01:49 | PC.NURSE ---
pt transferred to CSU in preparation for cath lab tech procedure today. Pt contacted family to inform them of her transfer.
--- NOTE | 2024-06-19 02:03 | PC.NURSE ---
Patient arrived on floor 0145 from [facility]. Report given by Jair OLIVA.
[2024-06-19] MEDS: morphine IR 15 mg Tablet PO (02:12)
[2024-06-19 04:34] LABS: Blood Urea Nitrogen 15 mg/dL (6-20); Calcium 8.3 mg/dL (8.5-10.5); Carbon Dioxide 26 mmol/L (22-29); Chloride 105 mmol/L (98-107); Creatinine Clr Calc Pharmacy 144.9286; Glomerular Filtration Rate 88.2 mL/min (90-130); Glucose 91 mg/dL (65-115); Osmolality Calculated 288 mOsm/kg (285-295); Sodium 139 mmol/L (136-145)
[2024-06-19] MEDS: aspirin 325 mg Tablet PO (06:07)
--- NOTE | 2024-06-19 06:14 | XACV_ITS ---
Exam Room: 2 Ht: 175 cm Wt: 143 kg BSA: 2.71 m2 Gender: Female : 1970 Any Known Allergies: Other Exam Priority: Routine Procedure(s): Procedure Description: Diagnostic procedure Procedure Description: Left Heart Catheterization Procedure Description: Left ventriculography Procedure Description: Coronary Angiography RAYAVarun Snyder; Diagnostic Cath Status: Urgent Conclusions 1. 1. Left main is normal. 2. 2. LAD is normal. 3. 3. LCx is normal. 4. 4. RCA is normal and dominant. 5. 5. Left ventricular ejection fraction normal 55%, left ventricular end-diastolic pressure is normal 7 mmHg. Recommendations * Usual post cath care. * Consider PPI for possible GERD in regards to chest pain etiology. Diagnostic RX Recommendation: medical therapy and/or counseling LV EDP: 7 mmHg Ventriculography Ejection Fraction: 55.0 % Pressures Phase:Rest AO : 75 / 59 ( 66 ) @ 8:36:00 AM 102 / 56 ( 72 ) @ 8:47:00 AM 102 / 56 ( 72 ) @ 8:47:00 AM LV : 122 / -12 / 7 @ 8:46:00 AM 122 / -16 / 4 @ 8:47:00 AM 122 / -16 / 2 @ 8:47:00 AM Valves Phase:DefaultPhase AV : 20.0 @ 7:53:12 AM AV Mean Gradient: 15.0 @ 7:53:12 AM Clinical Evaluation EBL: 5mL-10mL Procedural Details Procedure Consent Obtained. Pre-Procedure Time Out. Identified patient by full name and date of as verbalized by the patient/guarantor. Does the consent match the physician's order: Yes. Accurate & Complete Informed Consent: Yes. Inpatient/Outpatient History & Physical on Chart: Yes. If H&P is completed, is and addenduem needed: No. Visualize and Verify Site with Patient/Guarantor: N/A. Relevant Radiology Images available: Yes. The risks, benefits, and alternatives of sedation and/or procedure were discussed by physician. The patient agrees to continue. Procedure started. [facility] Clinical Fraility Score: 3: Managing Well. Finisher Hand Indications: New Onset Angina/abnormal stress test. Chest Pain Symptom Assessment: Typical Angina Symptoms. Cardiovascular Instability: No. Correct patient, site and procedure confirmed by cath team. PERRLA. Strong, equal hand retail merchandiser bilaterally. Lungs clear x 5 lobes. IV Site on Arrival: 18 gauge in the left upper arm. IV Fluids: 0.9% NaCl at KVO. 200 mL infused prior to laborer salvage. Pre Procedural Pulses: bilateral dorsalis pedis was 3+. Pre Procedural Pulses: bilateral posterior tibial was 3+. Pre Procedural Pulses: right radial was 2+. Pre Procedural Pulses: left radial was 3+. Oxygen started at 2liters/min via nasal canula. right groin was prepped with chloroprep then draped in the usual sterile fashion. right radial was prepped with chloroprep then draped in the usual sterile fashion. Physician notified. Baseline sample Acquired. HR: 73 BPM. Patient's family in the laborer salvage waiting room. Dr. Snyder will update at the completion of the procedure. Equipment: 6F - Femoral. Cardiac Cath Pack. ACIST Manifold Kit Model BT 2000. Heparinized Saline (2 units/mL), 1000 mL bag. Physician arrived. Physician scrubbed in. Immediate Pre-Procedure Time Out. Correct Patient: Yes; Correct Procedure: Yes; Correct Site: Yes; Correct Patient Position: Yes; Correct Supplies: Yes; Dried Flammable Prep: Yes; Blood Products Available: N/A;. Lidocaine 1% infiltrated to the right groin. Arterial access obtained. A 5 sinhala Billy catheter in over the exchange J wire. Multiple views taken of left coronary artery. Catheter redirected to the RCA. Multiple views taken of right coronary artery. Catheter removed over the exchange J wire. A 5 sinhala Angled Pig catheter in over the exchange J wire. EDP Sample taken: LV 122/-13,7; HR: 72 BPM; SpO2: 96%. LV gram performed in SHEEHAN @ 10 mL/second for a total of 30 mL. EDP Sample taken: LV 122/-17,4; HR: 79 BPM; SpO2: 95%. Pullback taken: LV 122/-17,2; AO 102/56(72); Mean: 15mmHg, Peak to Peak: 20mmHg, SEP: 9sec/min; HR: 79 BPM; SpO2: 96%. Catheter removed over the exchange J wire. Dr. Snyder scrubbed out. Patient's family updated by Dr. Snyder. A TR Band was successful obtaining hemostatsis at the Right Radial artery insertion site. Post Procedure: Pulses reassessed and unchanged. PERRLA. Strong, equal hand retail merchandiser bilaterally. No VTE prophylaxis required. Medication's Wasted: Lidocaine 1% = 18 mL. Medication's Wasted: Nitro = 49.8 mg. Medication's Wasted: Heparin = 1000 Units. Medication's Wasted: Other = Fentanyl 25 mcg. Total IV fluids: 45 mL. Post-op diagnosis: Normal coronaries. Complications: none. Estimated blood loss: 5mL-10mL. Responsiveness - Normal response to verbal stimuli; alert and oriented, PERRLA. Airway - Unaffected, no intervention required; spontaneous ventilation. Circulation: W/N/L, pulses unchanged. Nausea/Vomiting: No. Procedure completed. Patient transferred by bed to 1st floor. Vital chart was stopped. Access Site Site: Right Radial artery Sheath Size: 6 Fr Hemostasis Method: TR Band Hemostasis Success: Successful Procedure Medications Start: 7:23 AM Stop: 7:23 AM Medication: Versed Amount: 1 mg Route: I.V. Start: 7:23 AM Stop: 7:23 AM Medication: Fentanyl Amount: 50 mcg Route: I.V. Start: 7:29 AM Stop: 7: AM Medication: Versed Amount: 1 mg Route: I.V. Start: 7:30 AM Stop: 7:30 AM Medication: Nitrogylcerin Amount: 200 mcg Route: I.A. Start: 7:33 AM Stop: 7:33 AM Medication: Heparin Amount: 5000 units Route: I.V. Start: 7:43 AM Stop: 7:43 AM Medication: Fentanyl Amount: 25 mcg Route: I.V. I, the attending physician, have reviewed and verified all procedure medications. Yes, all medications given per verbal order History/Risk Factors Hypertension: Yes Dyslipidemia: Yes Peripheral Arterial Disease (PAD): No Myocardial Infarction (ID): No Obesity: Yes Renal Disease: No Tobacco Use: Current/Recent(w/in 1 year) Prior Interventions PCI: No CABG: No Valve Surgery: No Report Signatures Finalized by Gregg Snyder MD on 06/19/2024 08:15 AM
--- NOTE | 2024-06-19 07:10 | PC.NURSE ---
Patient taken to labor representative at this time via bed. Patient denies pain or needs presently. Family at bedside.
--- NOTE | 2024-06-19 07:21 | W.PM.OPSUD ---
Surgery/Procedure H&P Update DATE OF PROCEDURE: June 19, 2024 DATE H&P PERFORMED: 06/18/24 H&P UPDATE INFORMATION: I have reviewed H&P completed within last 30 days, I have examined patient prior to procedure and No changes to prior documentation PREOP DIAGNOSIS: Abn stress test PLANNED PROCEDURE: Operation Date: 06/17/24 10:10 Proposed Procedures p middle finger distal interphalangeal joint cyst excision(Right) - Omer Feliz DO Operation Date: 06/19/24 07:00 Proposed Procedures p Cardiac Catheterization(Left) - Gregg Snyder MD PATIENT REASSESSED PRIOR TO SEDATION, WITH NO CHANGE NOTED: Yes PHYSICAL EXAM: alert, oriented x 3, clear to auscultation bilaterally, regular rate & rhythm and operative site marked OTHER PERTINENT EXAM FINDINGS: Mallampati 2
--- NOTE | 2024-06-19 08:08 | P.PN_ITS ---
Subjective 2 Subjective: S/p left heart cath showed normal coronaries Left ventricular ejection fraction normal Left ventricular end-diastolic pressure normal Vitals/I&O/Wt Last Vital Signs Temp 97.8 F 06/19/24 04:00 Pulse 75 06/19/24 05:24 Resp 12 06/19/24 04:00 BP 113/48 06/19/24 04:00 Pulse Ox 91 06/19/24 03:07 O2 Del Method Room Air 06/18/24 15:58 06/18/24 06/19/24 06/19/24 22:59 06:59 14:59 Intake Total 680 / 1234 162.5 / 1396.5 Balance 680 / 1234 162.5 / 1396.5 Weight last 48 hrs Weight 313 lb 4 oz Weight 313 lb 4 oz Weight 315 lb 1.6 oz Weight 298 lb Weight 298 lb Physical Exam 2 Const: COMMON NORMALS: alert OTHER: GENERAL: Patient is alert, awake and oriented x3. HEART: Regular S1 and S2. No murmur, rub or gallop. LUNGS: Clear to auscultate bilaterally. CENTRAL NERVOUS SYSTEM: Grossly nonfocal. EXTREMITIES: Lower extremities with out edema bilaterally. Resp: COMMON NORMALS: clear to auscultation bilaterally AUSCULTATION: clear to auscultation bilaterally Neuro: SENSORIUM/ORIENTATION: Yes alert Data 06/18/24 02:45 06/19/24 03:28 A&P Assessment and plan (1) Abnormal stress test: Status post left heart catheterization showed normal coronaries, stress test was falsely positive. Will discharge patient from the cardiovascular perspective. (2) Chest pain, atypical: Negative coronaries, cannot rule out coronary spasm, give trial of PPI for possible GERD (3) Essential hypertension: Well-controlled continue current regimen Attestations 2 Medical Necessity Statement*: From a cardiac perspective patient can be discharged home after completing bedrest in 3 hours. Coding Level of Care Code Acute Code for [facility] Diagnoses Abnormal stress test R94.39 Chest pain, atypical R07.89 Essential hypertension I10
--- NOTE | 2024-06-19 08:23 | SUR.PHASEI ---
POST CATH NOTE Received patient from laboratory sample carrier. Status post cardiac catheterization via the right radial approach. TR Band is in place to right wrist with 14 ml of air in the band. Site is hemostatic. Patient is awake, communicative and in no distress. Call light placed within easy reach. Informed to call for needs. Family at bedside. Vitals and assessments per flowsheet.
--- NOTE | 2024-06-19 08:44 | P.DS_ITS ---
Discharge Providers Date of Admission: 06/18/24 12:30 Date of Discharge: June 19, 2024 Attending Provider at Admission: Omer Feliz DO Attending Provider at Discharge: Gregg Cano MD Primary Care Provider: BUBBA Foley Diagnoses at Discharge Discharge Diagnosis (1) Abnormal stress test: Status: Acute (2) Chest pain, atypical: Status: Acute (3) Essential hypertension: Status: Acute Reason for Visit Reason for Visit: M67.441 Hospital Course Hospital Course 53-year female with significant hypercoagulable state disorder which runs in the family, patient was treated for pulmonary embolism in the past as well, does not have any coronary artery disease, was admitted after her finger cyst removal for chief complaint of chest pain. Her troponins and EKG remain unremarkable, we requested echo which did not show any wall motion abnormality. Stress test was done next day. Stress test was positive, cardiology was consulted, patient went for coronary angiogram 06/19 via radial access, which was unremarkable. No stents were placed. Patient did not experience any chest pain during hospitalization, she remained hemodynamically stable, she will discharge with stable hemodynamics. Her D-dimer was not high for her age hence we have not pursued thromboembolic disease investigation. Physical Exam Narrative: Awake and alert Hemodynamically stable TR band site without any active hematoma Discharge Data Studies Completed and Pending Completed Studies During Hospitalization Category Date Time Status CIRCUIT WALKER request for service Routine Exams 06/19/24 06:14 Completed Sestamibi Stress Test Request Routine Exams 06/17/24 14:42 Draft NM anoop perf SPECT r/s* [id number] Routine Nuc Med 06/18/24 07:01 Completed CV. echo complete* [id number] Routine Ultrasound 06/17/24 11:40 Completed Pending at discharge Category Date Time Status Pathology: Surgical [PTH] Routine Pth 06/17/24 10:20 Received Laboratory Results WBC 7.92 10^3/uL (3.29-11.43) 06/18/24 02:45 RBC 4.29 10^6/uL (3.85-5.65) 06/18/24 02:45 Hgb 13.30 g/dL (11.27-16.99) 06/18/24 02:45 Hct 41.9 % (36-47) 06/18/24 02:45 MCV 97.7 fl (85-98) 06/18/24 02:45 MCH 31.0 pg (27-33) 06/18/24 02:45 MCHC 31.7 g/dL (30-55) 06/18/24 02:45 RDW 13.6 % (12.1-15.1) 06/18/24 02:45 Plt Count 211 10^3/cmm (157-399) 06/18/24 02:45 MPV 11.6 fL (7.4-10.4) H 06/18/24 02:45 Neut % (Auto) 51.3 % 06/18/24 02:45 Lymph % (Auto) 39.5 % 06/18/24 02:45 Deuel % (Auto) 6.8 % 06/18/24 02:45 Eos % (Auto) 1.6 % 06/18/24 02:45 Baso % (Auto) 0.4 % 06/18/24 02:45 Neut # (Auto) 4.06 10^3/uL (1.8-7.7) 06/18/24 02:45 Lymph # (Auto) 3.1 10^3/uL (0.8-4.8) 06/18/24 02:45 Deuel # (Auto) 0.5 10^3/uL (0.2-0.9) 06/18/24 02:45 Eos # (Auto) 0.1 10^3/uL (0.0-0.8) 06/18/24 02:45 Baso # (Auto) 0.0 10^3/uL (0.0-0.1) 06/18/24 02:45 Nucleated RBC % (auto) 0 % 06/18/24 02:45 Nucleated RBCs # 0.0 /100WBC 06/18/24 02:45 D-Dimer 0.65 ug/mLFEU (0-0.59) H 06/17/24 11:52 Sodium 139 mmol/L (136-145) 06/19/24 03:28 Potassium 4.0 mmol/L (3.5-5.1) 06/19/24 03:28 Chloride 105 mmol/L (98-107) 06/19/24 03:28 Carbon Dioxide 26 mmol/L (22-29) 06/19/24 03:28 Anion Gap 12.0 (5-19) 06/19/24 03:28 BUN 15 mg/dL (6-20) 06/19/24 03:28 Creatinine 0.7 mg/dL (0.5-0.9) 06/19/24 03:28 GFR Calculation 88.2 mL/min (90-130) L 06/19/24 03:28 Glucose 91 mg/dL (65-115) 06/19/24 03:28 Calculated Osmolality 288 mOsm/kg (285-295) 06/19/24 03:28 Calcium 8.3 mg/dL (8.5-10.5) L 06/19/24 03:28 Magnesium 2.2 mg/dL (1.7-2.3) 06/18/24 02:45 Troponin T 5th Gen ng/L < 6 ng/L (0-10) 06/17/24 11:35 Troponin T Baseline < 6 ng/L (0-10) 06/17/24 15:11 Troponin T 120 Minute 6.00 ng/L (0-10) 06/17/24 17:51 Delta Troponin T 0.69633 ABS# (0-10) 06/17/24 17:51 Troponin T Hi Sens 6Hr 6.00 ng/L (0-10) 06/17/24 21:41 Troponin T Hi Sens 6Hr Delta 0.18748 ng/L (0-12) 06/17/24 21:41 Vitals Last Vital Signs Temp 97.8 F 06/19/24 04:00 Pulse 75 06/19/24 05:24 Resp 12 06/19/24 04:00 BP 113/48 06/19/24 04:00 Pulse Ox 91 06/19/24 03:07 O2 Del Method Room Air 06/19/24 08:15 Discharge Plan Discharge Patient Disposition: Home Condition: Stable Prescriptions: New tramadol 50 mg tablet 50 mg PO Q6H PRN (Reason: pain) Qty: 20 0RF ondansetron 4 mg tablet,disintegrating 4 mg PO Q8H PRN (Reason: nausea and vomiting) 3 Days Qty: 9 0RF Continued omeprazole 40 mg capsule,delayed release(DR/EC) 40 mg PO DAILY venlafaxine 37.5 mg capsule,extended release 24hr 75 mg PO QPM hydrochlorothiazide 12.5 mg tablet 12.5 mg PO DAILY buspirone 10 mg tablet 10 mg PO DAILY rosuvastatin 10 mg tablet 10 mg PO QPM metoprolol tartrate 25 mg tablet 25 mg PO DAILY amitriptyline 25 mg Tablet 25 mg PO BEDTIME Discontinued metoprolol tartrate 50 mg Tablet 50 mg PO DAILY Discharge Orders: Discharge Order (Routine); Ordered 06/19/24 Ordered By: Gregg Cano Referrals: Ruth Calvo FNP [Primary Care Provider] - 07/01/24 9:00 am (You have an appointment on July 01 at 0900 to see BUBBA Foley. ) Omer Feliz DO [Physician] - 07/30/24 3:30 pm (You have an appointment to see Dr. Feliz on July 30 at 1530. ) Discharge Diet: Regular Discharge Activity: Limit activity as instructed Patient Instructions: Tramadol (By mouth), Chest Pain (DC), Acute Wound Care (DC), Opioid Safety, Post Anesthesia Care Activity Restrictions/Additional Instructions: Orthopedic discharge instructions: Patient should leave dressing on in place for 72 hours after that may remove dressing, clean incision with warm soapy water pat dry and redress with a dry dressing or Band-Aid. No baths or soaks do not submerge the operated hand into any bodies of water until incision site is completely healed. Encourage finger range of motion as tolerated May weight-bear as tolerated to the operative extremity Elevation and ice as needed for pain and swelling Take pain medication as prescribed Take antinausea medication as needed May supplement with [id number] anti-inflammatories (make sure not to take more than 3000 mg of Tylenol in 1 day as your pain medication does have Tylenol in it) Follow-up in the orthopedic office in 2 weeks Contact the office for any questions or concerns Discharge Attestations Time Spent in Discharge Care*: greater than 30 min Quality Metrics Clinical Quality Measures [ No reported AMI, CVA or VTE this stay] Coding Level of Care Code Acute Code for [facility] Fwd Diagnoses Abnormal stress test R94.39 Chest pain, atypical R07.89 Essential hypertension I10
--- NOTE | 2024-06-19 09:06 | PC.NURSE ---
Received patient from laboratory technologist s/p [facility] with right radial access and TR band in place. No s/s of bleeding or hematoma formation observed. Right extremity is pink, warm with palpable pulse. Patient denies pain to site. Dressing to right hand s/p abscess removal was changed in laboratory technologist due to soiling. Will continue to monitor.
[2024-06-19] MEDS: metoprolol tartrate 25 mg Tablet PO (09:36)
[2024-06-19] MEDS: hydroCHLOROthiazide 25 mg Tablet 12.5 MG PO (09:36)
[2024-06-19] MEDS: BuSPIRONE 10 mg Tablet PO (09:36)
--- NOTE | 2024-06-19 11:49 | PC.NURSE ---
Initiated TR band removal at 0900 removing 2ml of air every 15-20min until band off at 1140. No s/s of bleeding or hematoma formation observed. Instructed patient on site care and restrictions. Patient verbalized understanding. Patient currently has discharge orders. Spoke with Dr Feliz. Will hold discharge until seen by him.
--- NOTE | 2024-06-19 12:55 | P.PN_ITS ---
Subjective 2 Subjective: Patient seen and examined she is postoperative day 2. She had a stress test that was done and was positive cardiology was consulted and currently underwent angiogram today which was unremarkable and no stents were placed. Her chest pain has resolved per the primary team she is planning on discharge today. Dressing still in place given appropriate discharge instructions. Patient understands agrees to current plan. All questions answered. Follow-up with orthopedics in 2 weeks Vitals/I&O/Wt Last Vital Signs Temp 97.8 F 06/19/24 04:00 Pulse 73 06/19/24 12:30 Resp 13 06/19/24 12:30 BP 108/64 06/19/24 12:45 Pulse Ox 93 06/19/24 12:30 O2 Del Method Room Air 06/19/24 11:15 06/18/24 06/19/24 06/19/24 22:59 06:59 14:59 Intake Total 680 / 1234 162.5 / 1396.5 920 / 920 Balance 680 / 1234 162.5 / 1396.5 920 / 920 Weight last 48 hrs Weight 313 lb 4 oz Weight 313 lb 4 oz Weight 315 lb 1.6 oz Physical Exam 2 Narrative: Dressing to the right hand on in place is clean dry and intact. Patient still has some paresthesias from the local digital block. Dressing not taken down at this time. Patient is able to move the rest of her digits. Data 06/18/24 02:45 06/19/24 03:28 A&P Assessment and plan (1) Cyst of finger: Plan Stable for discharge from orthopedic standpoint May remove dressing after postoperative day 3, encourage finger range of motion Pain control Ice as needed Elevation of operative extremity for pain and swelling Patient's completed her chest pain she had postoperatively had appropriate workup by the hospitalist for stress test which was positive underwent angiogram by cardiology today which was unremarkable and she is cleared for discharge today. Seen evaluated prior to her discharge she understands normal postoperative instructions and postoperative course will follow-up with us in the orthopedic office in 2 weeks at her planned postoperative visit. Patient understands agrees to current plan. Questions answered. Attestations 2 Medical Necessity Statement*: Ongoing care after having chest pain postoperatively after finger cyst removal has been worked up by hospitalist and cardiology. Coding Level of Care Code Acute Code for Chg Fwd Diagnoses Cyst of finger Time Spent (min) 10
== END 2024-06-19 13:05 | disposition home or self-care (01) | DRG 988 ==
LOC: MEDSURG 13:01 → CSU 06-19 07:06
PROVIDERS: Internal Medicine Cardiovascular Disease; Student in an Organized Health Care Education/Training Program; Admitting Provider Student in an Organized Health Care Education/Training Program; PCP Nurse Practitioner Family; Visit Provider Internal Medicine
DX: R07.89 Other chest pain (principal); D68.59 Other primary thrombophilia; Z68.42 Body mass index [BMI] 45.0-49.9, adult; M25.841 Other specified joint disorders, right hand; K21.9 Gastro-esophageal reflux disease without esophagitis; M19.041 Primary osteoarthritis, right hand; E88.810 Metabolic syndrome; M79.7 Fibromyalgia; R94.39 Abnormal result of other cardiovascular function study; F17.210 Nicotine dependence, cigarettes, uncomplicated; I10 Essential (primary) hypertension; E66.9 Obesity, unspecified; Z82.49 Family history of ischemic heart disease and other diseases of the circulatory system; Z79.899 Other long term (current) drug therapy; Z88.5 Allergy status to narcotic agent; Z88.8 Allergy status to other drugs, medicaments and biological substances; Z98.1 Arthrodesis status; Z90.710 Acquired absence of both cervix and uterus; Z90.49 Acquired absence of other specified parts of digestive tract; Z83.2 Family history of diseases of the blood and blood-forming organs and certain disorders involving the immune mechanism; Z86.711 Personal history of pulmonary embolism
CPT/HCPCS: 36415; 78452; 80048; 83735; 84484; 85025; 85378; 88304; 93005; 93017; 93306; 93458; 96372; 96374; 99152; 99153; A9500; C1769; C1887; C1894; G0378; J0131; J0690; J1170; J1644; J1650; J1885; J2250; J2405; J2470; J2710; J2785; J2795; J3010; J3490; J7030; Q9967

== ENCOUNTER 2024-06-28 16:56 | Emergency (ER) | payer OTHER, BC, MEDICAID, SELFPAY ==
[2024-06-28] VITALS (8 sets, daily range): BP systolic 113–141; BP diastolic 72–99; PULSE 68–87; RESP 15–18; TEMP 36.7; O2SAT 93–98; BMI 41.3
--- NOTE | 2024-06-28 18:18 | ECG_ITS ---
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 Measurements Intervals [place] Rate: 82 P: 52 HI: 122 QRS: 71 QRSD: 111 T: -16 QT: 359 QTc: 421 Interpretive Statements SINUS RHYTHM MODERATE INTRAVENTRICULAR CONDUCTION DELAY [110+ ms QRS DURATION] NONSPECIFIC ST & T-WAVE ABNORMALITY Compared to ECG 06/17/2024 14:13:39 Intraventricular conduction delay now present T-wave abnormality still present Electronically Signed On 06-29-2024 18:46:45 CDT by Kael Chaudhry M.D. [id number]
--- NOTE | 2024-06-28 18:18 | XRR_ITS ---
PROCEDURE INFORMATION: Exam: XR Chest Exam date and time: 06/28/2024 6:34 PM Age: 53 years old Clinical indication: Chest pressure; Patient HX: SOB; Chest pain; RT arm pain post radial access angio; HTN; HX svt TECHNIQUE: Imaging protocol: Radiologic exam of the chest. Views: 1 view. COMPARISON: CR XR chest 1V [id number] 02/06/2019 3:40 PM FINDINGS: Lungs: Clear, symmetrically inflated lungs. Pleural spaces: No pleural effusion. No pneumothorax. Heart/Mediastinum: Cardiac silhouette is normal in size for technique. Bones/joints: Age appropriate. XR/XR chest 1V portable [id number] IMPRESSION: No acute cardiopulmonary abnormality.
--- NOTE | 2024-06-28 18:35 | ED_ITS ---
HPI - Extremity Problem 2 General: Chief complaint: Extremity Injury, Upper Stated complaint: sob,right arm cheek Time Seen by Provider: 06/28/24 18:34 History of Present Illness: Patient comes in today for soreness to the right arm. Patient had a Angiocath performed through the right arm on the . Patient comes in today due to increased tenderness and pain to the right arm with streaking along the right elbow. Patient denies any fever. Patient does have a history of DVT and PE. Patient does not take routine blood thinners. Related Data Home Medications Medication Instructions Recorded Confirmed omeprazole 40 mg capsule,delayed 40 mg PO DAILY 11/24/19 06/17/24 release venlafaxine 37.5 mg 75 mg PO QPM 07/06/21 06/16/24 capsule,extended release 24 hr buspirone 10 mg tablet 10 mg PO DAILY 05/07/24 06/16/24 hydrochlorothiazide 12.5 mg tablet 12.5 mg PO DAILY 05/07/24 06/16/24 rosuvastatin 10 mg tablet 10 mg PO QPM 05/07/24 06/16/24 amitriptyline 25 mg tablet 25 mg PO BEDTIME 06/16/24 06/16/24 metoprolol tartrate 25 mg tablet 25 mg PO DAILY 06/16/24 06/16/24 Previous Rx's Medication Instructions Recorded tramadol 50 mg tablet 50 mg PO Q6H PRN pain #20 tabs 06/17/24 apixaban 5 mg (74 tabs) tablets in See Rx Instructions PO .COMPLEX 06/28/24 a dose pack (Eliquis DVT-PE Treat #74 ea 30D Start) Allergies Allergy/AdvReac Type Severity Reaction Status Date / Time codeine Allergy hives Verified 06/17/24 08:39 estradiol Allergy ALGY-Wheezi Verified 06/17/24 08:39 ng nalbuphine [From Nubain] Allergy hives Verified 06/17/24 08:39 tramadol Allergy Unknown Verified 06/28/24 17:13 Review of Systems 2 General: Reports: 10 or more systems reviewed and unremarkable except in HPI and below Musc: Reports: extremity pain PFSH ED 2 PFSH: Medical History (Updated 06/28/24 @ 20:54 by BUBBA Hawthorne) Essential hypertension Chest pain, atypical Cyst of finger Fibromyositis Tachycardia Metabolic syndrome Obesity Vitamin D deficiency H/O supraventricular tachycardia Menopausal symptoms Hiatal hernia GERD (gastroesophageal reflux disease) Cervical disc disease Cervical post-laminectomy syndrome SVT (supraventricular tachycardia) Fibromyalgia Goiter Surgical History (Updated 06/20/24 @ 00:03 by GIRISH Drake) S/P shoulder surgery 2020 removal of bone spur [facility], [place] History of laparoscopic cholecystectomy H/O: hysterectomy Hx of fusion of cervical spine (2003) C5-C6, Dr. 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 Patient has red streaking extending from the mid forearm up to the anterior distal right upper arm. Some mild warmth is noted to the area. Differential diagnosis includes not limited to DVT, thrombophlebitis, lymphangitis. Neuro: SENSORIUM/ORIENTATION: Yes alert Course 2 Vital Signs: Vital signs: Vital Signs Temperature 98.0 F 06/28/24 17:08 Pulse Rate 71 06/28/24 20:30 Respiratory Rate 17 06/28/24 20:30 Blood Pressure 127/87 06/28/24 20:30 Pulse Oximetry 95 06/28/24 20:30 Oxygen Delivery Me thod Room Air 06/28/24 20:30 MDM - Extremity (Nontraumatic) Medical Decision Making 53-year-old female comes in today with some erythema linear to the right extremity which she had a cardiac cath done. Patient has minimal swelling to the extremity. Patient does have a linear area of redness and warmth ranging from the mid proximal forearm to the distal upper arm. Differential diagnosis includes but not limited to DVT, phlebitis, ACS. CBC CMP was unremarkable. Chest x-ray showed no abnormalities. Ultrasound of the right upper extremity noted DVT. 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 Patient reported understanding of care plan and need for follow-up. Lab Data 06/28/24 18:48 06/28/24 18:48 Radiology Impressions Chest X-Ray 06/28/24 18:18 IMPRESSION: No acute cardiopulmonary abnormality. Laboratory Results WBC 10.80 10^3/uL (3.29-11.43) 06/28/24 18:48 RBC 4.72 10^6/uL (3.85-5.65) 06/28/24 18:48 Hgb 14.80 g/dL (11.27-16.99) 06/28/24 18:48 Hct 44.8 % (36-47) 06/28/24 18:48 MCV 94.9 fl (85-98) 06/28/24 18:48 MCH 31.4 pg (27-33) 06/28/24 18:48 MCHC 33.0 g/dL (30-55) 06/28/24 18:48 RDW 13.3 % (12.1-15.1) 06/28/24 18:48 Plt Count 280 10^3/cmm (157-399) 06/28/24 18:48 MPV 11.5 fL (7.4-10.4) H 06/28/24 18:48 Neut % (Auto) 55.5 % 06/28/24 18:48 Lymph % (Auto) 35.1 % 06/28/24 18:48 [place] % (Auto) 6.5 % 06/28/24 18:48 Eos % (Auto) 2.0 % 06/28/24 18:48 Baso % (Auto) 0.6 % 06/28/24 18:48 Neut # (Auto) 6.00 10^3/uL (1.8-7.7) 06/28/24 18:48 Lymph # (Auto) 3.8 10^3/uL (0.8-4.8) 06/28/24 18:48 [place] # (Auto) 0.7 10^3/uL (0.2-0.9) 06/28/24 18:48 Eos # (Auto) 0.2 10^3/uL (0.0-0.8) 06/28/24 18:48 Baso # (Auto) 0.1 10^3/uL (0.0-0.1) 06/28/24 18:48 Nucleated RBC % (auto) 0 % 06/28/24 18:48 Nucleated RBCs # 0.0 /100WBC 06/28/24 18:48 Sodium 139 mmol/L (136-145) 06/28/24 18:48 Potassium 3.3 mmol/L (3.5-5.1) L 06/28/24 18:48 Chloride 98 mmol/L (98-107) 06/28/24 18:48 Carbon Dioxide 29 mmol/L (22-29) 06/28/24 18:48 Anion Gap 15.3 (5-19) 06/28/24 18:48 BUN 15 mg/dL (6-20) 06/28/24 18:48 Creatinine 0.8 mg/dL (0.5-0.9) 06/28/24 18:48 GFR Calculation 75.6 mL/min (90-130) L 06/28/24 18:48 Glucose 113 mg/dL (65-115) 06/28/24 18:48 Calculated Osmolality 290 mOsm/kg (285-295) 06/28/24 18:48 Calcium 9.6 mg/dL (8.5-10.5) 06/28/24 18:48 Total Bilirubin 0.3 mg/dL (0.15-1.2) 06/28/24 18:48 AST 16 U/L (0-32) 06/28/24 18:48 ALT 16 U/L (0-33) 06/28/24 18:48 Alkaline Phosphatase 98 U/L (35-105) 06/28/24 18:48 Troponin T Baseline < 6 ng/L (0-10) 06/28/24 18:48 Total Protein 6.9 g/dL (6.6-8.7) 06/28/24 18:48 Albumin 4.3 g/dL (3.5-5.2) 06/28/24 18:48 Globulin 2.6 g/dL (1.3-4.6) 06/28/24 18:48 Lipase 43 U/L (13-60) 06/28/24 18:48 All radiology interpretation(s) finalized by discharge EKG Data EKG 2: I personally reviewed and interpreted this EKG as follows: EKG interpretation date: 06/28/24 EKG interpretation time: 20:59 Interpretation: EKG shows a sinus rhythm with a regular rate at [address] elevation or ectopy is noted. No prior exam was available for comparison. Computer generated interpretation: Sinus rhythm. ST deviation and moderate T wave abnormality, consider anterolateral ischemia. Abnormal EKG. Unconfirmed report. Discharge Plan Discharge Patient Disposition: Home Clinical Impression: Deep vein thrombosis (DVT) of brachial vein of left upper extremity Condition: Stable Prescriptions: New Eliquis DVT-PE Treat 30D Start 5 mg (74 tabs) tablets,dose pack See Rx Instructions .ROUTE .COMPLEX Qty: 74 0RF Rx Instructions: orally per package directions No Action omeprazole 40 mg capsule,delayed release(DR/EC) 40 mg PO DAILY venlafaxine 37.5 mg capsule,extended release 24hr 75 mg PO QPM hydrochlorothiazide 12.5 mg tablet 12.5 mg PO DAILY buspirone 10 mg tablet 10 mg PO DAILY rosuvastatin 10 mg tablet 10 mg PO QPM metoprolol tartrate 25 mg tablet 25 mg PO DAILY amitriptyline 25 mg Tablet 25 mg PO BEDTIME tramadol 50 mg tablet 50 mg PO Q6H PRN (Reason: pain) Qty: 20 0RF Discharge Orders: Discharge ED (Routine); Ordered 06/28/24 Ordered By: Bryce Arizmendi Referrals: Ruth Calvo FNP [Primary Care Provider] - Discharge Diet: Usual diet Discharge Activity: Increase activity as tolerated Patient Instructions: Apixaban (By mouth) (Eliquis), Deep Vein Thrombosis (ED) Activity Restrictions/Additional Instructions: Follow-up with primary care for continued therapy for DVT. Case management will contact you regarding follow-up with hematology oncology. Return to ER for worsening symptoms such as severe shortness of breath or severe chest pain. Coding Level of Care Code ED Six Sigma Project Manager for 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
--- NOTE | 2024-06-28 18:40 | USR_ITS ---
PROCEDURE INFORMATION: Exam: US Duplex Right Upper Extremity Veins, Limited Exam date and time: 06/28/2024 8:25 PM Age: 53 years old Clinical indication: Edema, localized; Upper extremity, right; Patient HX: Patient had angio recently and access was right wrist; Additional info: Swelling redness RT upper arm TECHNIQUE: Imaging protocol: Real-time duplex ultrasound of the right Upper Extremity with 2-D wellington scale, color Doppler flow and spectral waveform analysis with image documentation. Limited exam focused on the right upper extremity veins. COMPARISON: No relevant prior studies available. FINDINGS: Right deep veins: Unremarkable. Axillary and brachial veins are patent throughout without thrombus. Normal Doppler waveforms. Normal compressibility and/or augmentation response. Visualized internal jugular and subclavian veins are patent. Superficial veins: There is long segment occlusion of the basilic vein extending from the mid forearm to the mid brachium. Mixed internal echoes noted in the basilic vein. Patent cephalic vein. Soft tissues: Unremarkable. US/[place] [id number] IMPRESSION: There is occlusion the right basilic vein with mixed echotexture suggesting acute on chronic thrombosis. Thrombus extends from the forearm to the mid brachium.
[2024-06-28 18:57] LABS: Basophils # 0.1 10^3/uL (0.0-0.1); Basophils % 0.6 %; Eosinophils # 0.2 10^3/uL (0.0-0.8); Hematocrit 44.8 % (36-47); Lymphocytes # 3.8 10^3/uL (0.8-4.8); Lymphocytes % 35.1 %; Mean Corpuscular Hemoglobin 31.4 pg (27-33); Mean Corpuscular Volume 94.9 fl (85-98); Mean Platelet Volume 11.5 fL (7.4-10.4); Monocytes # 0.7 10^3/uL (0.2-0.9); Monocytes % 6.5 %; Neutrophils % 55.5 %; Nucleated Red Blood Cells % 0 %; Platelet Count 280 10^3/cmm (157-399); Red Blood Count 4.72 10^6/uL (3.85-5.65); Red Cell Distribution Width 13.3 % (12.1-15.1)
[2024-06-28 19:24] LABS: Alanine Aminotransferase 16 U/L (0-33); Albumin Level 4.3 g/dL (3.5-5.2); Alkaline Phosphatase 98 U/L (35-105); Anion Gap 15.3 (5-19); Aspartate Amino Transferase 16 U/L (0-32); Blood Urea Nitrogen 15 mg/dL (6-20); Calcium 9.6 mg/dL (8.5-10.5); Carbon Dioxide 29 mmol/L (22-29); Chloride 98 mmol/L (98-107); Creatinine Clr Calc Pharmacy 118.8892; Globulin 2.6 g/dL (1.3-4.6); Glomerular Filtration Rate 75.6 mL/min (90-130); Glucose 113 mg/dL (65-115); Lipase 43 U/L (13-60); Osmolality Calculated 290 mOsm/kg (285-295); Potassium 3.3 mmol/L (3.5-5.1); Sodium 139 mmol/L (136-145); Total Bilirubin 0.3 mg/dL (0.15-1.2); Total Protein 6.9 g/dL (6.6-8.7)
[2024-06-28 19:26] LABS: Troponin(5th) Baseline < 6 ng/L (0-10)
--- NOTE | 2024-06-28 20:14 | ECG_ITS ---
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 Measurements Intervals [place] Rate: 73 P: 37 HI: 139 QRS: 60 QRSD: 107 T: -24 QT: 400 QTc: 444 Interpretive Statements SINUS RHYTHM ST DEVIATION AND MODERATE T-WAVE ABNORMALITY, CONSIDER ANTEROLATERAL ISCHEMIA [-0.1+ mV T-WAVE IN V3-V6] Compared to ECG 06/28/2024 17:02:10 Possible ischemia now present Intraventricular conduction delay no longer present T-wave abnormality still present Electronically Signed On 06-29-2024 18:56:16 CDT by Kael Chaudhry M.D. [id number]
[2024-06-28] MEDS: apixaban 5 mg Tablet 10 MG PO (21:02)
== END 2024-06-28 21:14 | disposition home or self-care (01) ==
PROVIDERS: Emergency Medicine; Emergency Provider Nurse Practitioner Family; PCP Nurse Practitioner Family
DX: I82.622 Acute embolism and thrombosis of deep veins of left upper extremity (principal); Z72.0 Tobacco use; I10 Essential (primary) hypertension
CPT/HCPCS: 36415; 71045; 80053; 83690; 84484; 85025; 93005; 93971; 99285

== ENCOUNTER 2024-07-29 07:45 | Oncology outpatient (recurring) (ONCR) | payer OTHER, BC, MEDICAID, SELFPAY ==
[2024-07-29 08:29] LABS: Basophils % 0.6 %; Eosinophils # 0.6 10^3/uL (0.0-0.8); Eosinophils % 8.2 %; Hematocrit 44.5 % (36-47); Lymphocytes # 2.5 10^3/uL (0.8-4.8); Lymphocytes % 35.4 %; Mean Corpuscular HGB Conc 32.6 g/dL (30-55); Mean Corpuscular Hemoglobin 30.7 pg (27-33); Mean Corpuscular Volume 94.3 fl (85-98); Mean Platelet Volume 11.8 fL (7.4-10.4); Monocytes # 0.4 10^3/uL (0.2-0.9); Monocytes % 5.9 %; Neutrophils # 3.53 10^3/uL (1.8-7.7); Neutrophils % 49.6 %; Nucleated Red Blood Cells % 0 %; Platelet Count 252 10^3/cmm (157-399); Red Blood Count 4.72 10^6/uL (3.85-5.65); Red Cell Distribution Width 13.9 % (12.1-15.1); White Blood Count 7.11 10^3/uL (3.29-11.43)
[2024-07-29 08:44] LABS: D Dimer 0.49 ug/mLFEU (0-0.59)
[2024-07-31 03:40] LABS: CARDIOLIPIN AB (IGA) <2.0 APL-U/mL; CARDIOLIPIN AB (IGG) <2.0 GPL-U/mL; CARDIOLIPIN AB (IGM) <2.0 MPL-U/mL
[2024-08-01 22:14] LABS: PROTEIN C, ACTIVITY 130 % normal (70-180)
[2024-08-01 22:43] LABS: Antithrombin III Activity 119 % normal (80-135)
[2024-08-03 17:09] LABS: Lupus DRVVT Confirm NEGATIVE (NEGATIVE); PTT-LA-Screen 39 sec (< OR = 40)
[2024-08-04 19:35] LABS: Beta 2 Glycoprotein IGA <2.0 U/mL (<20.0); Beta 2 Glycoprotein IGG <2.0 U/mL (<20.0); Beta 2 Glycoprotein IGM 3.3 U/mL (<20.0)
== END 2024-07-30 23:59 | disposition home or self-care (01) ==
PROVIDERS: PCP Nurse Practitioner Family; Visit Provider Internal Medicine Hematology & Oncology
DX: I82.409 Acute embolism and thrombosis of unspecified deep veins of unspecified lower extremity (principal)
CPT/HCPCS: 36415; 81241; 85025; 85210; 85300; 85303; 85378; 85613; 85730; 86146; 86147

== ENCOUNTER 2024-09-08 12:01 | Emergency (ER) | payer OTHER, BC, MEDICAID, SELFPAY ==
--- NOTE | 2024-09-08 12:02 | XRR_ITS ---
PROCEDURE INFORMATION: Exam: XR Chest Exam date and time: 09/08/2024 12:19 PM Age: 53 years old Clinical indication: Pain; Angina pectoris; Additional info: Cp TECHNIQUE: Imaging protocol: Radiologic exam of the chest. Views: 1 view. Total images: 1 COMPARISON: CR XR chest 1V portable [id number] 06/28/2024 6:34 PM FINDINGS: Lungs: There is no acute pneumonia or edema evident. Pleural spaces: No pleural effusion identified. Heart/Mediastinum: Stable appearing medial left retrocardiac opacity most consistent with a hiatal hernia . Cardiomediastinal silhouette is stable. Bones/joints: No acute osseous abnormality identified. XR/XR chest 1V portable [id number] IMPRESSION: No acute cardiopulmonary abnormality identified. Retrocardiac density most consistent with a moderate-sized hiatal hernia. Consider follow-up with standard upright PA and lateral chest x-ray for further assessment.
--- NOTE | 2024-09-08 12:02 | ECG_ITS ---
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 Measurements Intervals [place] Rate: 86 P: 43 IN: 124 QRS: 53 QRSD: 82 T: 12 QT: 327 QTc: 393 Interpretive Statements SINUS RHYTHM NONSPECIFIC T-WAVE ABNORMALITY Compared to ECG 06/28/2024 20:14:48 Possible ischemia no longer present T-wave abnormality still present Electronically Signed On 09-08-2024 19:11:51 ROLLER SKATE REPAIRER by Jyoti Lr M.D. [id number]
[2024-09-08 12:15] VITALS: PULSE 87; RESP 18; TEMP 36.4; O2SAT 98; BMI 45.0
[2024-09-08 12:18] VITALS: BP 130/97; PULSE 81; RESP 18; O2SAT 98
[2024-09-08 12:37] LABS: Basophils # 0.1 10^3/uL (0.0-0.1); Basophils % 0.6 %; Eosinophils # 0.3 10^3/uL (0.0-0.8); Eosinophils % 3.6 %; Hematocrit 43.3 % (36-47); Lymphocytes # 3.2 10^3/uL (0.8-4.8); Lymphocytes % 37.4 %; Mean Corpuscular HGB Conc 32.8 g/dL (30-55); Mean Corpuscular Hemoglobin 30.5 pg (27-33); Mean Corpuscular Volume 93.1 fl (85-98); Mean Platelet Volume 11.9 fL (7.4-10.4); Monocytes # 0.6 10^3/uL (0.2-0.9); Monocytes % 6.6 %; Neutrophils # 4.39 10^3/uL (1.8-7.7); Neutrophils % 51.6 %; Nucleated Red Blood Cells % 0 %; Platelet Count 272 10^3/cmm (157-399); Red Blood Count 4.65 10^6/uL (3.85-5.65); Red Cell Distribution Width 13.4 % (12.1-15.1); White Blood Count 8.51 10^3/uL (3.29-11.43)
[2024-09-08 12:59] LABS: Albumin Level 4.2 g/dL (3.5-5.2); Chloride 101 mmol/L (98-107); Potassium 4.3 mmol/L (3.5-5.1); Sodium 139 mmol/L (136-145); Troponin(5th) Baseline < 6 ng/L (0-10)
--- NOTE | 2024-09-08 13:01 | ED_ITS ---
HPI - Chest Pain 2 General: Chief Complaint: Chest Pain Stated Complaint: Chest Pain Time Seen by Provider: 09/08/24 12:41 Source: patient Mode of arrival: ambulatory Limitations: no limitations History of Present Illness: 53-year-old female states she started villasenor ving chest pain roughly 1 hour ago. He states the pains been a pressure pain that radiates to her back and down her arms had some shortness of breath well she had a history of PE 2 years ago states symptoms are similar she is currently on blood thinners denies any fevers or vomiting Associated symptoms: Reports dyspnea; Deny abdominal pain, fever(s), nausea or vomiting Related Data Home Medications Medication Instructions Recorded Confirmed omeprazole 40 mg capsule,delayed 40 mg PO QAM 11/24/19 09/08/24 release buspirone 10 mg tablet 10 mg PO QAM 05/07/24 09/08/24 hydrochlorothiazide 12.5 mg tablet 12.5 mg PO QAM 05/07/24 09/08/24 amitriptyline 25 mg tablet 25 mg PO BEDTIME PRN Sleep 06/16/24 09/08/24 metoprolol tartrate 25 mg tablet 25 mg PO QAM 06/16/24 09/08/24 apixaban 5 mg tablet (Eliquis) 5 mg PO BID 09/08/24 09/08/24 rosuvastatin 20 mg tablet 20 mg PO QPM 09/08/24 09/08/24 venlafaxine 150 mg 150 mg PO QPM 09/08/24 09/08/24 capsule,extended release 24 hr Allergies Allergy/AdvReac Type Severity Reaction Status Date / Time codeine Allergy hives Verified 09/08/24 12:13 estradiol Allergy ALGY-Wheezi Verified 09/08/24 12:13 ng nalbuphine [From Nubain] Allergy hives Verified 09/08/24 12:13 tramadol Allergy Unknown Verified 09/08/24 12:13 Review of Systems 2 Const: Denies: fever(s), chills, body aches or change in appetite ENMT: Denies: throat pain or dental pain Card: Reports: chest pain Resp: Reports: dyspnea GI: Denies: abdominal pain, nausea, vomiting or diarrhea Musc: Denies: neck pain or back pain Skin/Breast: Denies: rash Neuro: Denies: headache(s) PFSH ED 2 PFSH: Medical History Cyst of finger Essential hypertension Chest pain, atypical Fibromyositis Tachycardia Metabolic syndrome Obesity Vitamin D deficiency H/O supraventricular tachycardia Menopausal symptoms Hiatal hernia GERD (gastroesophageal reflux disease) Cervical disc disease Cervical post-laminectomy syndrome SVT (supraventricular tachycardia) Fibromyalgia Goiter Surgical History S/P shoulder surgery 2020 removal of bone spur [facility] [place] History of laparoscopic cholecystectomy H/O: hysterectomy Hx of fusion of cervical spine (2003) C5-C6, Dr. 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 Exam 2 Const: COMMON NORMALS: no acute distress, patient oriented x3 and healthy appearing HENMT: COMMON NORMALS: normocephalic and atraumatic HEAD & SCALP: n ormocephalic and atraumatic Eye: COMMON NORMALS: conjunctivae normal CONJUNCTIVA: Yes conjunctivae normal Neck/C-Spine: COMMON NORMALS: full ROM and supple Chest: COMMONS NORMALS: normal inspection of the chest and normal palpation of entire chest wall Resp: COMMON NORMALS: normal respiratory effort, No retractions, No use of accessory muscles and clear to auscultation bilaterally AUSCULTATION: clear to auscultation bilaterally Cardio: COMMON NORMALS: regular rate, regular rhythm and No murmurs present (Cardio) RATE: regular rate RHYTHM: regular rhythm Extremity: COMMON NORMALS: normal to inspection and full ROM Neuro: COMMON NORMALS: patient oriented x3, moves all extremities and no focal motor deficits Psych: COMMON NORMALS: mental status grossly normal, Normal thought process present and cooperative THOUGHT PROCESS: Normal thought process present Skin: COMMON NORMALS: no rashes or lesions noted and no wounds GENERAL SKIN EXAM: no rashes or lesions noted Course 2 Vital Signs: Vital signs: Vital Signs Temperature 97.6 F 09/08/24 12:15 Pulse Rate 73 09/08/24 16:21 Respiratory Rate 17 09/08/24 16:21 Blood Pressure 137/103 09/08/24 16:21 Pulse Oximetry 98 09/08/24 16:21 Oxygen Delivery Me thod Room Air 09/08/24 16:21 MDM - Chest Pain Medical Decision Making Patient presents for chest pain is going to the CT aorta chest to rule out a PE did have difficult time with IV was able place an IV but then patient did not want the study done her troponins here are negative no tachycardia she is already on blood thinners and feels she is stable for discharge her symptoms have improved here as well informed her she changes her mind about CT her symptoms worsen she is to return she understands agrees to plan. Medical Records I reviewed the patient's medical records. Lab Data I reviewed the patient's lab results. 09/08/24 12:18 09/08/24 12:18 Radiology Impressions Chest X-Ray 09/08/24 12:02 IMPRESSION: No acute cardiopulmonary abnormality identified. Retrocardiac density most consistent with a moderate-sized hiatal hernia. Consider follow-up with standard upright PA and lateral chest x-ray for further assessment. Laboratory Results WBC 8.51 10^3/uL (3.29-11.43) 09/08/24 12:18 RBC 4.65 10^6/uL (3.85-5.65) 09/08/24 12:18 Hgb 14.20 g/dL (11.27-16.99) 09/08/24 12:18 Hct 43.3 % (36-47) 09/08/24 12:18 MCV 93.1 fl (85-98) 09/08/24 12:18 MCH 30.5 pg (27-33) 09/08/24 12:18 MCHC 32.8 g/dL (30-55) 09/08/24 12:18 RDW 13.4 % (12.1-15.1) 09/08/24 12:18 Plt Count 272 10^3/cmm (157-399) 09/08/24 12:18 MPV 11.9 fL (7.4-10.4) H 09/08/24 12:18 Neut % (Auto) 51.6 % 09/08/24 12:18 Lymph % (Auto) 37.4 % 09/08/24 12:18 [place] % (Auto) 6.6 % 09/08/24 12:18 Eos % (Auto) 3.6 % 09/08/24 12:18 Baso % (Auto) 0.6 % 09/08/24 12:18 Neut # (Auto) 4.39 10^3/uL (1.8-7.7) 09/08/24 12:18 Lymph # (Auto) 3.2 10^3/uL (0.8-4.8) 09/08/24 12:18 [place] # (Auto) 0.6 10^3/uL (0.2-0.9) 09/08/24 12:18 Eos # (Auto) 0.3 10^3/uL (0.0-0.8) 09/08/24 12:18 Baso # (Auto) 0.1 10^3/uL (0.0-0.1) 09/08/24 12:18 Nucleated RBC % (auto) 0 % 09/08/24 12:18 Nucleated RBCs # 0.0 /100WBC 09/08/24 12:18 PT 13.50 SECONDS (12.1-14.9) 09/08/24 12:18 INR 1.00 (0.8-1.2) 09/08/24 12:18 Sodium 139 mmol/L (136-145) 09/08/24 12:18 Potassium 4.3 mmol/L (3.5-5.1) 09/08/24 12:18 Chloride 101 mmol/L (98-107) 09/08/24 12:18 Carbon Dioxide 26 mmol/L (22-29) 09/08/24 12:18 Anion Gap 16.3 (5-19) 09/08/24 12:18 BUN 12 mg/dL (6-20) 09/08/24 12:18 Creatinine 0.8 mg/dL (0.5-0.9) 09/08/24 12:18 GFR Calculation 75.6 mL/min (90-130) L 09/08/24 12:18 Glucose 104 mg/dL (65-115) 09/08/24 12:18 Calculated Osmolality 288 mOsm/kg (285-295) 09/08/24 12:18 Calcium 10.5 mg/dL (8.5-10.5) 09/08/24 12:18 Total Bilirubin 0.4 mg/dL (0.15-1.2) 09/08/24 12:18 AST 16 U/L (0-32) 09/08/24 12:18 ALT 16 U/L (0-33) 09/08/24 12:18 Alkaline Phosphatase 88 U/L (35-105) 09/08/24 12:18 Troponin T Baseline < 6 ng/L (0-10) 09/08/24 12:18 Troponin T 120 Minute 6.00 ng/L (0-10) 09/08/24 15:08 Delta Troponin T 0.72124 ABS# (0-10) 09/08/24 15:08 Total Protein 6.8 g/dL (6.6-8.7) 09/08/24 12:18 Albumin 4.2 g/dL (3.5-5.2) 09/08/24 12:18 Globulin 2.6 g/dL (1.3-4.6) 09/08/24 12:18 Lipase 42 U/L (13-60) 09/08/24 12:18 All radiology interpretation(s) finalized by discharge EKG Data EKG 1: I personally reviewed and interpreted this EKG as follows: EKG interpretation date: 09/08/24 EKG interpretation time: 12:09 Interpretation: nsr hr [address] elevation qrs 82 qtc 371 EKG 2: I personally reviewed and interpreted this EKG as follows: EKG interpretation date: 09/08/24 EKG interpretation time: 15:11 Interpretation: nsr hr [address] elevation qrs 87 qtc 391 Discharge Plan Discharge Patient Disposition: Home Clinical Impression: Chest pain Condition: Stable Prescriptions: No Action omeprazole 40 mg capsule,delayed release(DR/EC) 40 mg PO QAM hydrochlorothiazide 12.5 mg tablet 12.5 mg PO QAM buspirone 10 mg tablet 10 mg PO QAM metoprolol tartrate 25 mg tablet 25 mg PO QAM amitriptyline 25 mg Tablet 25 mg PO BEDTIME PRN (Reason: Sleep) venlafaxine 150 mg capsule,extended release 24hr 150 mg PO QPM rosuvastatin 20 mg tablet 20 mg PO QPM Eliquis 5 mg tablet 5 mg PO BID Discharge Orders: Discharge ED (Routine); Ordered 09/08/24 Ordered By: Anusha Mane Referrals: Ruth Calvo FNP [Primary Care Provider] - Discharge Diet: Advance as tolerated Discharge Activity: Resume usual activity Patient Instructions: Chest Pain (ED) Coding Level of Care Code ED 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
[2024-09-08 13:45] LABS: Alanine Aminotransferase 16 U/L (0-33); Alkaline Phosphatase 88 U/L (35-105); Anion Gap 16.3 (5-19); Aspartate Amino Transferase 16 U/L (0-32); Blood Urea Nitrogen 12 mg/dL (6-20); Calcium 10.5 mg/dL (8.5-10.5); Carbon Dioxide 26 mmol/L (22-29); Creatinine Clr Calc Pharmacy 124.8467; Globulin 2.6 g/dL (1.3-4.6); Glomerular Filtration Rate 75.6 mL/min (90-130); Glucose 104 mg/dL (65-115); Lipase 42 U/L (13-60); Osmolality Calculated 288 mOsm/kg (285-295); Total Bilirubin 0.4 mg/dL (0.15-1.2); Total Protein 6.8 g/dL (6.6-8.7)
[2024-09-08] MEDS: aspirin 81 mg Chew Tablet 324 MG PO (13:49)
--- NOTE | 2024-09-08 14:02 | ECG_ITS ---
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 Measurements Intervals [place] Rate: 73 P: 32 DE: 140 QRS: 44 QRSD: 87 T: 7 QT: 365 QTc: 404 Interpretive Statements SINUS RHYTHM NONSPECIFIC T-WAVE ABNORMALITY Compared to ECG 09/08/2024 12:09:08 No significant changes Electronically Signed On 09-09-2024 01:05:11 [employer] by Jyoti Lr M.D. [id number]
[2024-09-08 14:48] VITALS: BP 134/92; PULSE 81; RESP 18; O2SAT 98
[2024-09-08 15:31] LABS: Troponin 5 2HR Delta 0.00001 ABS# (0-10)
[2024-09-08 16:15] VITALS: BP 137/103; PULSE 74; O2SAT 99
[2024-09-08 16:21] VITALS: BP 137/103; PULSE 73; RESP 17; O2SAT 98
--- NOTE | 2024-09-08 16:22 | PC.NURSE ---
PATIENT WAS ATTEMPTED FOR IV ACCESS BY HAZEL NG., FITO DUNN RN., AND PREETHI, FAMILY COACH. STARTED ATTEMPTING IV ACCESS AT 1215 AFTER ASSESSING PATIENT. ATTEMPTED 4 IV ATTEMPTS AND ULTRASOUND ATTEMPTS. PATIENT WAS TAKEN TO CT THE FIRST TIME AT APPROX 1400. PATIENTS IV WAS REMOVED AND KINKED AT THAT TIME. ATTEMPTED IV PLACEMENT AGAIN. PATIENT WENT TO CT AGAIN AT APPROX 1500. PATIENTS IV WAS HURTING PATIENT AND SHE REQUESTED THE CT TECHS TO STOP AND REQUESTED TO RETURN TO ED AND SPEAK WITH PHYSICIAN. DR. PERRY NOTIFIED.
== END 2024-09-08 16:27 | disposition home or self-care (01) ==
PROVIDERS: Emergency Provider Emergency Medicine; PCP Nurse Practitioner Family
DX: R07.9 Chest pain, unspecified (principal); Z79.01 Long term (current) use of anticoagulants; Z72.0 Tobacco use; I10 Essential (primary) hypertension
CPT/HCPCS: 36415; 71045; 80053; 83690; 84484; 85025; 85610; 93005; 99285

== ENCOUNTER 2024-10-01 13:07 | Oncology outpatient (recurring) (ONCR) | payer OTHER, BC, MEDICAID, SELFPAY ==
[2024-10-01 13:32] LABS: Basophils % 0.5 %; Eosinophils # 0.2 10^3/uL (0.0-0.8); Eosinophils % 2.2 %; Hematocrit 45.1 % (36-47); Lymphocytes # 3.1 10^3/uL (0.8-4.8); Lymphocytes % 35.1 %; Mean Corpuscular Hemoglobin 30.7 pg (27-33); Mean Corpuscular Volume 92.8 fl (85-98); Mean Platelet Volume 11.3 fL (7.4-10.4); Monocytes # 0.5 10^3/uL (0.2-0.9); Monocytes % 6.1 %; Neutrophils # 4.88 10^3/uL (1.8-7.7); Neutrophils % 55.9 %; Nucleated Red Blood Cells % 0 %; Platelet Count 277 10^3/cmm (157-399); Red Blood Count 4.86 10^6/uL (3.85-5.65); Red Cell Distribution Width 12.9 % (12.1-15.1); White Blood Count 8.72 10^3/uL (3.29-11.43)
[2024-10-01 13:49] LABS: Alanine Aminotransferase 19 U/L (0-33); Albumin Level 4.4 g/dL (3.5-5.2); Alkaline Phosphatase 81 U/L (35-105); Anion Gap 16.8 (5-19); Aspartate Amino Transferase 21 U/L (0-32); Blood Urea Nitrogen 14 mg/dL (6-20); Calcium 9.3 mg/dL (8.5-10.5); Carbon Dioxide 23 mmol/L (22-29); Chloride 102 mmol/L (98-107); Creatinine Clr Calc Pharmacy 145.1327; D Dimer 0.63 ug/mLFEU (0-0.59); Globulin 2.9 g/dL (1.3-4.6); Glomerular Filtration Rate 88.2 mL/min (90-130); Glucose 94 mg/dL (65-115); Lactate Dehydrogenase 190 U/L (135-214); Osmolality Calculated 286 mOsm/kg (285-295); Potassium 3.8 mmol/L (3.5-5.1); Sodium 138 mmol/L (136-145); Total Bilirubin 0.4 mg/dL (0.15-1.2); Total Protein 7.3 g/dL (6.6-8.7)
--- NOTE | 2024-10-02 15:30 | USCV_ITS ---
Reagan Gregoria Age: 53 Gender: F : 1970 Exam Date: 10/02/2024 15:38 Ordering Phys: Claudia Bradley NP Technologist: CT Exam Location: [facility] [place]_ Indication: PROCEDURES: Venous duplex imaging was performed in only the right lower extremity. On the right side, the common femoral, superficial femoral, profunda femoral, popliteal, posterior tibial, greater saphenous veins and the peroneal trunk were identified and interrogated in the standard fashion. FINDINGS: Normal 2-D Doppler and augmentation and compressibility throughout the lower extremity venous structures. Additional imaging through the proximal calf veins also reveals no thrombus. Limited evaluation of the greater saphenous vein is patent with no thrombus. CONCLUSIONS No DVT right lower extremity. Dr. Yaa Clay DO (Electronically Signed) Final Date: 05 October 2024 12:28 S
== END 2024-10-30 23:59 | disposition home or self-care (01) ==
PROVIDERS: PCP Nurse Practitioner Family; Visit Provider Nurse Practitioner
DX: I82.409 Acute embolism and thrombosis of unspecified deep veins of unspecified lower extremity (principal)
CPT/HCPCS: 36415; 80053; 83615; 85025; 85378; 93971

== ENCOUNTER 2024-11-09 13:51 | Outpatient (CLI) | payer OTHER, BC, MEDICAID, SELFPAY ==
--- NOTE | 2024-11-09 15:09 | XR_ITS ---
WS: [id number] XR shoulder RT min 2V* [id number] REASON FOR EXAM: RIGHT SHOULDER PAIN, 25.511 FINDINGS: No fracture or focal bone lesion. Minimal narrowing of the acromioclavicular joint space with minimal subchondral sclerosis and osteophytosis. Glenohumeral joint space is not well demonstrated. There does not appear to be significant narrowing of the joint space there is mild subchondral sclerosis of the glenoid. No significant subchondral bone change in the head of the humerus. No significant sclerosis or cystic change in the greater biceps tuberosity. XR/XR shoulder RT min 2V* [id number] IMPRESSION: Minimal osteoarthritis of the acromioclavicular joint. Osteoarthritis of the glenohumeral joint severity not fully determine, likely m inimal. No significant rotator cuff tendon arthropathy.
== END 2024-11-09 13:52 | disposition home or self-care (01) ==
PROVIDERS: PCP Nurse Practitioner Family; Visit Provider Internal Medicine
DX: M25.511 Pain in right shoulder (principal); R93.6 Abnormal findings on diagnostic imaging of limbs
CPT/HCPCS: 73030

== ENCOUNTER → 2024-11-27 10:29 | Outpatient (BNVA) | payer OTHER, BC, MEDICAID, SELFPAY | PROVIDERS: PCP Nurse Practitioner Family; Visit Provider Physician Assistant | DX: M75.21 Bicipital tendinitis, right shoulder (principal); M75.41 Impingement syndrome of right shoulder | CPT/HCPCS: 73030 ==

== ENCOUNTER 2025-01-12 14:16 | Outpatient (CLI) | payer OTHER, BC, MEDICAID, SELFPAY ==
--- NOTE | 2025-01-12 14:22 | MR_ITS ---
WS: [id number] EXAMINATION: MR shoulder RT wo/w con [id number] ORDER DATE: 01/12/2025 2:28 PM COMPARISON: 2019 HISTORY: PAIN IN RT SHOULDER/PARESTHESIA OF SKIN TECHNIQUE: Axial T2 STAR, coronal proton density fat sat, sagittal T2 fat sat, sagittal proton density fat sat, axial proton density fat sat, coronal T2 fat sat, and coronal T1 performed. After contrast, axial T1 fat sat, coronal T1 fat sat, and sagittal T1 fat sat were performed. FINDINGS: Moderate degenerative arthritis AC joint. Mild narrowing of the subacromial space. Slight subacromial spurring. Degenerative arthritis in the AC joint and glenohumeral joint is progressed compared to 2019. Small amount of fluid at the AC joint. Slight impingement of the distal supraspinatus with a tiny bursal surface tear extending AP approximately 9 mm. No tendon retraction. Normal infraspinatus. Normal teres minor. Normal subscapularis tendon. Biceps tendon appears intact within the bicipital groove. Intra-articular biceps tendon appears intact. Moderate to advanced degenerative narrowing of the glenohumeral articulation. Normal bone marrow signal in the glenoid. No abnormal gadolinium enhancement. No other suspicious findings. MR/MR shoulder RT wo/w con [id number] IMPRESSION: 1. Moderate degenerative arthritis AC joint and glenohumeral joint progressed compared to 2019. 2. Small amount of fluid and edema the AC joint with slight subacromial spurri ng. 3. Slight impingement distal supraspinatus with a small bursal surface tear me asuring 9 mm AP dimension. No tendon retraction. 4. Rotator cuff is otherwise intact. 5. Biceps tendon appears intact within the bicipital groove. 6. Somewhat diminutive shoulder capsule can be seen with adhesive capsulitis i n the appropriate clinical setting. 7. No other acute findings.
[2025-01-12] MEDS: gadobenate dimeglumine 20 mL vial IV (15:28)
== END 2025-01-12 14:17 | disposition home or self-care (01) ==
PROVIDERS: PCP Nurse Practitioner Family; Visit Provider Internal Medicine
DX: M19.011 Primary osteoarthritis, right shoulder (principal); R20.2 Paresthesia of skin; M75.101 Unspecified rotator cuff tear or rupture of right shoulder, not specified as traumatic; R93.7 Abnormal findings on diagnostic imaging of other parts of musculoskeletal system
CPT/HCPCS: 73223

== ENCOUNTER 2025-01-18 07:31 | Outpatient (CLI) | payer OTHER, BC, MEDICAID, SELFPAY ==
--- NOTE | 2025-01-18 07:46 | US_ITS ---
WS: [id number] Exam: US breast BI limited* [id number] Date/Time of Exam: 01/18/2025 8:01 AM Reason For Exam: BREAST LUMP Patient directed regional ultrasound of the 3 o'clock position of the RIGHT breast is performed. A smoothly marginated subcutaneous fatty lesion is noted at the 3 o'clock position about 2 cm from the nipple. This measures 2.1 x 3.5 x 1 cm. It has the appearance of a lipoma. No other solid nodules or masses were identified in this region. Patient directed regional ultrasound of the LEFT breast at the 9 o'clock position was performed. A similar appearing subcutaneous smoothly marginated fatty lesion is noted at the 9 o'clock position 7 cm from the nipple. This measures 2.3 x 3 x 0.7 cm. This also has the appearance of a lipoma. No other solid nodules or masses were identified in this region. US/US breast BI limited* [id number] IMPRESSION: 1. Subcutaneous smoothly marginated fatty lesions at the 3 o'clock position in the RIGHT breast and the 9 o'clock position of the LEFT breast as discussed abo ve. These have benign appearance and are most likely lipomas. No suspicious ult rasound finding was identified. Yearly screening mammogram recommended. BI-RADS Category 2
== END 2025-01-18 07:32 | disposition home or self-care (01) ==
LOC: RAD 07:31
PROVIDERS: PCP Nurse Practitioner Family; Visit Provider Internal Medicine
DX: N64.89 Other specified disorders of breast (principal)
CPT/HCPCS: 76642